=== PATIENT | female | born 1985 | race Caucasian/White ===

== ENCOUNTER 2022-06-26 13:10 | Emergency (ER) | payer OTHER, SELFPAY ==
--- NOTE | 2022-06-26 13:12 | ED.FEMALEGU ---
HPI - Female Genitourinary General Chief complaint: Urogenital-Female Stated complaint: poss UTI Time Seen by Provider: 06/26/22 13:12 Source: patient Mode of arrival: ambulatory Limitations: no limitations History of Present Illness HPI Narrative: Danielle is a 37-year-old female patient presenting to the clinic today with complaints of possible urinary tract infection. She reports she is having some vaginal discomfort and urinary frequency. Reports that this has been going on for two weeks. Has been drinking a lot a water. Was seen by her PCP and given medications for bacterial vaginosis however her symptoms did not improve so she treated herself with rehi-[id number] yeast medication and this did not help. Last menstrual period was last month. She states she should be starting any time. Related Data Home Medications Medication Instructions Recorded Confirmed cetirizine 10 mg tablet 10 mg PO DAILY 06/26/22 06/26/22 escitalopram oxalate 20 mg tablet 20 mg PO DAILY 06/26/22 06/26/22 Allergies Allergy/AdvReac Type Severity Reaction Status Date / Time No Known Allergies Allergy Unknown Verified 06/26/22 13:26 Review of Systems Review of Systems: Pertinent positives per HPI. Patient denies any fever, chills, rash, headache, visual changes, dizziness, cough, runny nose, sore throat, shortness of breath, chest pain, palpitations, nausea, vomiting, diarrhea,or constipation. PMFSH Comments At the time of my signature, I reviewed and agree with the nursing past medical, surgical, social, and family history. There is no relevant family history pertinent to the patient complaint. Exam Narrative: General: Well-developed, well nourished, in no apparent distress Head: Normocephalic, atraumatic. Cardio: Regular rate and rhythm, s1 and s2 normal, no murmur appreciated. Resp: Clear to auscultation bilaterally, no rhonchi, rales, wheezing or rubs. Abdomen: Soft, pliable, bowel sounds present in all quadrants, non-tender to palpation, no CVAT tenderness. : Pelvic exam performed with (Sarah SHAW) at bedside. Verbal consent obtained from patient. Normal external female genitalia without lesions or masses, Urinary meatus: patent without discharge, Vagina: No lesions, masses, white discharge in pelvic vault Cervix: pink without mass, lesions, discharge, or tenderness. Adnexa: without palpable mass or tenderness. Course Course Emergency Course: Portions of this record may have been created with voice recognition software. Level of Care: Express Care Visit Vital Signs Vital signs: Vital Signs Temperature 36.8 C 06/26/22 13:16 Pulse Rate 68 06/26/22 13:16 Respiratory Rate 18 06/26/22 13:16 Blood Pressure 123/72 06/26/22 13:16 Pulse Oximetry 100 06/26/22 13:16 Oxygen Delivery Room Air 06/26/22 13:16 Temperature 36.8 C 06/26/22 13:16 Pulse Rate 68 06/26/22 13:16 Respiratory Rate 18 06/26/22 13:16 Blood Pressure 123/72 06/26/22 13:16 Pulse Oximetry 100 06/26/22 13:16 Oxygen Delivery Room Air 06/26/22 13:16 Vital signs reviewed MDM - Female Genitourinary MDM Narrative Medical decision making narrative: At the time of visit patient is resting comfortably on the exam table. UA and urine preg test negative in the clinic today. .Vaginal exam was performed and testing for chlamydia, gonorrhea, Trichomonas, and BV were obtained. I will go ahead and treat the patient for potential yeast infection. She has already been treated for BV. I do not see any abnormal vaginal discharge currently. Will send and 3 day course of Monistat. Differential Diagnosis Differential diagnosis: Likely urinary tract infection, bacterial vaginosis, trichomoniasis, cervicitis, vaginitis and cystitis Lab Data Labs: UCG Bedside Result Negative Reference Range: Negative Urine Glucose Negative
[2022-06-26 13:16] VITALS: BP 123/72; PULSE 68; RESP 18; TEMP 36.8; O2SAT 100
== END 2022-06-26 14:00 | disposition home or self-care (01) ==
PROVIDERS: Emergency Provider Nurse Practitioner Family; PCP Family Medicine
DX: L29.2 Pruritus vulvae (principal); F32.9 Major depressive disorder, single episode, unspecified
CPT/HCPCS: 81003; 81025; 87070; 87491; 87591; 87661; 99204; G0463

== ENCOUNTER 2024-04-27 08:58 | Emergency (ER) | payer OTHER, SELFPAY ==
[2024-04-27 09:04] VITALS: BP 120/71; PULSE 67; RESP 20; TEMP 36.7; O2SAT 98
--- NOTE | 2024-04-27 09:15 | ED_ITS ---
HPI - URI/Sore Throat General Chief Complaint: Upper Respiratory Infection Stated Complaint: Cough Source: patient Mode of arrival: ambulatory Limitations: no limitations History of Present Illness HPI Narrative: 39-year-old female presented for complaint of cough for 4 days. States chest feels tight, cough is worse at night and has heard some wheezing. She denies associated shortness of breath, lethargy, nausea, vomiting, fevers. She reports an intermittent cough since December of this year, and has been prescribed a low- dose steroid and albuterol inhaler By PCP. She states the inhaler causes her to feel anxious jittery so she limits use. she says this cough is different. Related Data Home Medications Medication Instructions Recorded Confirmed cetirizine 10 mg tablet 10 mg PO DAILY 06/26/22 04/27/24 escitalopram oxalate 20 mg tablet 20 mg PO DAILY 06/26/22 04/27/24 pantoprazole 40 mg tablet,delayed 40 mg PO QAM 04/06/24 04/27/24 release clobetasol 0.05 % topical cream topical 04/27/24 vibegron 75 mg tablet (Gemtesa) 75 mg PO DAILY 04/27/24 04/27/24 Allergies Allergy/AdvReac Type Severity Reaction Status Date / Time No Known Allergies Allergy Unknown Verified 04/27/24 09:22 Review of Systems Review of Systems: CONSTITUTIONAL: Denies body aches, fever, chills, or sweats. EYES: Denies visual changes, redness, or discharge. ENT: Denies rhinorrhea, congestion, sore throat, or otalgia. CARDIOVASCULAR: Denies chest pain, palpitations, or edema. RESPIRATORY: Reports cough wheezing. GASTROINTESTINAL: Denies abdominal pain, nausea, vomiting, or diarrhea. MUSCULOSKELETAL: Denies back pain, joint pain, or myalgia. NEUROLOGIC: Denies headache All systems reviewed & are unremarkable except as noted in HPI and below PMFSH Past Medical History Medical History Anxiety GERD (gastroesophageal reflux disease) Family History Family History Mother Depression Sibling Depression Sibling Depression Grandparent Depression Cancer Alcoholism Grandparent Depression Cancer Alcoholism Social History Social History Smoking status: Former smoker Tobacco type: cigarettes Second hand tobacco smoke exposure: Yes Alcohol intake: never Substance use: never Substance use type: does not use Do You Feel Safe in your Home?: Yes Lack of Transportation: No Lack of Food: Never True Current Housing: I Have Housing Concerned About Future Housing: No Difficulty Paying Gas/Electric Bills: No Difficulty Paying for Meds: No Currently Unemployed: No Education: Master's Degree or Higher Difficulty w/ Childcare or Family Care: No Living arrangements: with family Gender identity (if verbalized by the patient): Female Spiritual care concerns: No Agree to blood products: Yes Comments At time of signature, I have reviewed and agree with nursing past medical, surgical, social and family history unless otherwise noted. Please see nursing chart for further information. There is no relevant family history pertinent to the presenting complaint Exam Narrative: GENERAL: Well-appearing, in no acute distress. EYES: EOMI. No redness or drainage. Conjunctivae normal. ENT: Mucous membranes pink and moist. No rhinorrhea. TMs normal bilaterally. Throat normal. Uvula midline. NECK: Normal AROM. Supple. CHEST: No respiratory distress. Lungs clear to all keenan. HEART: Regular rate and rhythm. No murmur appreciated. SKIN: Warm, dry, no rash. Capillary refill normal. Normal skin turgor. NEURO: Alert and oriented x3. Gait steady. PSYCH: Normal affect. Course Course Emergency Course: Patient is aware of diagnosis, understands and agrees to treatment plan. Anticipatory guidance given. Patient agrees to follow-up as directed and is aware of reasons to seek care at the emergency department. Portions of this record may have been created with voice recognition software Level of Care: Express Care Visit Vital Signs Vital signs: Vital Signs Temperature 98.1 F 04/27/24 09:04 Pulse Rate 67 04/27/24 09:04 Respiratory Rate 20 04/27/24 09:04 Blood Pressure 120/71 04/27/24 09:04 Pulse Oximetry 98 04/27/24 09:04 Oxygen Delivery Room Air 04/27/24 09:04 Temperature 98.1 F 04/27/24 09:04 Pulse Rate 67 04/27/24 09:04 Respiratory Rate 20 04/27/24 09:04 Blood Pressure 120/71 04/27/24 09:04 Pulse Oximetry 98 04/27/24 09:04 Oxygen Delivery Room Air 04/27/24 09:04 MDM - URI/Sore Throat MDM Narrative Medical decision making narrative: Discussed physical exam findings, reviewed prescriptions. Advised supportive measures and signs/symptoms to go to the ER. Pt is appropriate for outpt treatment and f/u. Differential Diagnosis Differential diagnosis: Likely upper respiratory infection, sinusitis, viral infection, bronchitis and other ( pneumonia) Discharge Plan Discharge Clinical Impression: Bronchitis Patient Disposition: Home, Self-Care Condition: Stable Instructions: Antibiotic Form, Acute Bronchitis (ED) Additional Instructions: Acute bronchitis can be contagious because it is usually caused by infection with a virus or bacteria. It is usually for a few days but you can be contagious for up to one week. Take medication as directed Continue the albuterol inhaler as previously prescribed over the counter Cough syrup may cause drowsiness; avoid driving or take it at night time. Tylenol 1000mg every 8 hours as needed for pain Recommend Flonase spray and Zyrtec (or Claritin/Rosa) If you developed nasal congestion and drainage Rest, push fluids, and increase humidity of the air at home. if no improvement with the above measures you can start the antibiotic Follow up with your primary care provider as needed in 1 week Go to the ER for worsening symptoms or concerns Prescriptions: New benzonatate 200 mg capsule 200 mg PO TID PRN (Reason: cough) Qty: 20 0RF codeine-guaifenesin [Guaifenesin AC] 10-100 mg/5 mL liquid 10 ml PO Q8H PRN (Reason: cough) Qty: 120 0RF prednisone 20 mg tablet 20 mg PO DAILY Qty: 12 0RF Rx Instructions: take 3 tablets daily for 2 days, then 2 tablets daily for 2 days then 1 tablet daily for 2 days amoxicillin-pot clavulanate 875-125 mg tablet 1 tablet PO Q12H 7 Days Qty: 14 0RF No Action clobetasol 0.05 % cream TOPICAL Gemtesa 75 mg tablet 75 mg PO DAILY cetirizine 10 mg tablet 10 mg PO DAILY escitalopram oxalate 20 mg tablet 20 mg PO DAILY pantoprazole 40 mg tablet,delayed release (DR/EC) 40 mg PO QAM albuterol sulfate 90 mcg/actuation HFA aerosol inhaler 1 inh inhalation Q4H PRN (Reason: shortness of breath or wheezing) Qty: 8.5 0RF Follow-up/Referrals: Guillermo Swanson MD [Primary Care Provider] - Time of Disposition: 09:29
== END 2024-04-27 09:30 | disposition home or self-care (01) ==
PROVIDERS: Emergency Provider Nurse Practitioner Family; PCP Family Medicine
DX: J40 Bronchitis, not specified as acute or chronic (principal); Z87.891 Personal history of nicotine dependence; K21.9 Gastro-esophageal reflux disease without esophagitis; F41.9 Anxiety disorder, unspecified
CPT/HCPCS: 99213; G0463

== ENCOUNTER 2024-05-22 14:33 | Outpatient (CLI) | payer OTHER, SELFPAY ==
--- NOTE | 2024-05-29 20:02 | WPDPFTINT ---
PFT Procedure Performed PFT Procedure Performed Plethysmography (Lung Vol) Diffusing Cap (DLCO) Flow Vol Loop Spirometry w/o Bronchodil PFT Interpretation DOS: 05/22/2024 REQUESTING: Guillermo Swanson MD REASON FOR TESTING: Dyspnea PULMONARY FUNCTION TESTS Results are reliable and reproducible. Repeatability of spirometry FEV1 maneuver pre-bronchodilator is Grade A. Spirometry: The pre-bronchodilator FEV1 is 3.57 L, 105%. The pre-bronchodilator FVC is 4.16 L, 99%. The FEV1/FVC ratio is 86%. Lung volumes: The total lung capacity is 5.70 L, 101%. The residual volume is 1.55 L, 85%. The RV/TLC is 27%. Airway resistance is normal. Diffusion: DLCO is 23.3, 92%. The DLCO/VA is 4.61, 101%. Flow volume loop: The flow volume loop is normal. IMPRESSION: This study shows normal spirometry, normal lung volumes and normal diffusion. No prior study to compare. Dayna Pedraza MD
== END 2024-05-22 14:34 | disposition home or self-care (01) ==
PROVIDERS: PCP Family Medicine; Visit Provider Family Medicine
DX: R06.00 Dyspnea, unspecified (principal)
CPT/HCPCS: 94375; 94726; 94729

== ENCOUNTER 2024-06-28 09:40 | Outpatient (CLI) | payer OTHER, SELFPAY ==
--- NOTE | ~2024-06-28 | XR_ITS ---
EXAMINATION: XR barium swallow modified DATE: 06/28/2024 13:23 INDICATION: Dysphagia. TECHNIQUE: The patient was given barium-containing material of multiple consistencies to swallow by t he speech pathologist while I performed fluoroscopy. Fluoroscopy exposure time was 0.8 minutes. The n umber of fluoroscopy images saved to the PACS was 1. Dose-area product was 0.746 Gy-cm^2. FINDINGS: The oral stage, pharyngeal stage, and cervical/esophageal stage of the swallow are normal. IMPRESSION: 1. Normal modified barium swallow. 2. Please refer to the speech therapy report for recommendations. Reviewed, dictated and finalized at location A. ID POWERTRAIN DEVELOPMENT ENGINEER
--- NOTE | 2024-06-28 10:50 | REHSTMBS ---
Assessment and note entered by Kasey Angulo, OIL DISTRIBUTOR Modified Barium Swallow Evaluation Diagnosis I choke ICD-10 Condition Codes (ST) Dysphagia, unspecified R13.1 Feeding Type Recommended Oral Food Consistency Regular, Level 7 Liquid Consistency Thin (0) ST Clinical Summary The above pleasant and cooperative pt was seen for an outpatient modified barium swallow. She was alert & oriented, and able to follow commands. She is currently on a regular diet and reports choking; she states it has been going on for a long time but is getting worse. She states she was put on omeprazole a month or 2 ago. She has no h/o pf pulmonary issues, i.e. pneumonia associated with this swallow issue. Oral mucosa is normal; natural dentition is in good condition; Informal oral peripheral exam revealed lingual and labial structures to be normal. She was able to dry swallow on command and exhibited a strong cough and clear vocal quality. The patient was positioned for a lateral view and presented with 5cc of thin liquid barium via spoon , pudding consistency barium via a spoon, cracker coated with barium pudding via spoon, and uncontrolled thin liquid barium. This was presented via a cup & straw. Oral preparatory and oral phase symptoms: none. Pharyngeal phase symptoms: none. Esophageal stage symptoms: none. No aspiration occurred. Impressions: Normal swallow Ability No further ST is warranted at this time.
== END 2024-06-28 09:41 | disposition home or self-care (01) ==
PROVIDERS: PCP Family Medicine; Visit Provider Nurse Practitioner Family
DX: R05.9 Cough, unspecified (principal); R13.10 Dysphagia, unspecified
CPT/HCPCS: 92611

== ENCOUNTER 2024-09-04 18:44 | Emergency (ER) | payer OTHER, SELFPAY ==
--- NOTE | ~2024-09-04 | XR_ITS ---
HISTORY: dropped heavy object today. pain 1st toe/metatarsal COMPARISON: None TECHNIQUE: 3 views of the left foot were performed FINDINGS: No acute fracture or dislocation is appreciated. No significant degenerative disease is noted. The base of the fifth metatarsal is intact. No calcaneal spur is noted. No significant soft tissue swelling is present. IMPRESSION: No acute fracture or dislocation Reviewed, dictated and finalized at location A.
[2024-09-04 18:52] VITALS: BP 147/93; PULSE 74; RESP 20; TEMP 36.8; O2SAT 97
--- OUTSIDE RECORDS SUMMARY | 2024-09-04 19:20 | XMS_ITS | Encounter Summary ---
Author Organization [facility] Address [address] [place] [address] Phone Care Team Providers Care Pleater Name Role Phone Martinez Ovalle MD Primary Care Provider [phone] Reason for Visit * Reason Comments Medication Refill Encounter Details Date Type Department Care Team (Late st Contact Info) Description 09/15/2023 Refill [facility] [address] [place] [address] Mars Yung MD [address] [address] Medication Refill Social History Tobacco Use Types Packs/Day Years Used Date Smoking Tobacco: Every Day Cigarettes 0.5 12 Smokeless Tobacco: Never Alcohol Use Standard Drinks/Week Comments No 0 (1 standard drink = 0.6 oz pur e alcohol) Sexually Active Control Partners Comments Yes Male Comments No Sex and Gender Information Value Date Recorded Sex Assigned at Not on file Legal Sex Female 11:40 PM CDT Gender Identity Not on file Sexual Orientation Not on file documented as of this encounter Miscellaneous Notes * Telephone Encounter - Paula Yost RN - 09/16/2023 8:22 AM CDT Per nursing clinical judgement, provider to review and approve the medication(s) order(s) if appropriate. Requested Prescriptions Pending Prescriptions Disp Refills Gemtesa 75 MG Tablet [Pharmacy Med Name: GEMTESA 75MG TABLETS] 90 Tablet Sig: TAKE 1 TABLET BY MOUTH DAILY Urinary Beta-3 Adrenergic Agonist Protocol Failed - 09/15/2023 9:44 AM Failed - Active on medication list Failed - Blood pressure on record in past 12 months Failed - Visit with relevant provider in past 12 months or upcoming 90 days Recent Visits No visits were found meeting these conditions. Showing recent visits within past 365 days and meeting all other requirements Future Appointments No visits were found meeting these conditions. Showing future appointments within next 90 days and meeting all other requirements Failed - GFR greater than or equal to 30 in past 12 months No results found for: GFRNA Passed - No conflicting beta blockers on med list documented in this encounter Plan of Treatment Not on file documented as of this encounter Visit Diagnoses Not on filedocumented in this encounter Care Teams Pleater Relationship Specialty Start Date End Date Martinez Ovalle MD [address] [place] [address] PCP - General Internal Medicine 07/11/15 documented as of this encounter
--- OUTSIDE RECORDS SUMMARY | 2024-09-04 19:20 | XMS_ITS | Patient Health Summary ---
Author Organization [facility] Address [address] [place] [address] Care Team Providers Care It Security Analyst Name Role Phone Unavailable Primary Care Provider Unavailabl e Note from [facility],non-owned Affiliates and Associated Physician Practices is amultiple site organization consisting of ambulatory clinics and hospital sitesin [place], [place], [place] and [place]. This disclosure is being madepursuant to the Care Everywhere program and may not contain all information available regarding this patient. Last updated 18.[facility] Social History Tobacco Use Types Packs/Day Years Used Date Smoking Tobacco: Never Assessed Sex and Gender Information Value Date Recorded Sex Assigned at Not on file Gender Identity Not on file Sexual Orientation Not on file Procedures * DERMATOPATHOLOGY(Performed 08/01/2020) Results * DERMATOPATHOLOGY (08/01/2020 12:00 AM [facility]) Case Report Dermatopathology Report Case: [id number] Authorizing Provider: Lexis Peterson MD Collected: 08/01/2020 12:00 AM Ordering Location: [facility] DermPath Lab Received: 08/02/2020 10:06 AM Pathologist: Frank Putnam MD Specimen: Skin, right knee 12:19 PM [facility] DERMATOPATHOLOGY LABORATORY Final Diagnosis Specimen A. SKIN, right knee: SPONGIOTIC DERMATITIS WITH EOSINOPHILS (L30.8) (see microscopic description and comment) 12:19 PM [facility] DERMATOPATHOLOGY LABORATORY Clinical History R/O PSO, AD, LSC 12:19 PM [facility] DERMATOPATHOLOGY LABORATORY Gross Description Specimen A: Received is one formalin filled container labeled with the patient's name and designated right knee. The specimen consists of a punch biopsy measuring 3x3x5 mm. Jar 0. 1 12:19 PM [facility] DERMATOPATHOLOGY LABORATORY Microscopic Description Specimen A. SKIN, right knee: There is focal parakeratosis and spongiosis. In the dermis there is a mainly superficial perivascular lymphohistiocytic inflammatory infiltrate with eosinophils. Grocott's methenamine silver (GMS) stain fails to highlight fungal elements in the available sections. COMMENT: The histological differential diagnosis includes a contact dermatitis and nummular eczrme. Additional deeper sections were obtained and reviewed. 12:19 PM [facility] DERMATOPATHOLOGY LABORATORY Disclaimer An external and internal positive and negative controls are appropriate for the histochemical, immunohistochemical and immunofluorescence stain(s) in this case (if any), except where stated explicitly. The performance characteristics of the stain(s) cited in this report were developed and its performance characteristic determined by the Dermatopathology Laboratory at [facility], directed by Dr. Efra Putnam. These tests need not be, and therefore are not, approved by the [place] Food and Drug Administration. The tests are used for clinical purposes. Billing Codes Specimen Charges Stain Charges 91642 1 81170 1 1 12:19 PM [facility] DERMATOPATHOLOGY LABORATORY Embedded Images 12:19 PM [facility] DERMATOPATHOLOGY LABORATORY Pathology/Cytolog y TISSUE SPECIMEN FROM SKIN / Unknown 08/01/2020 08/02/2020 10:06 AM FITTING ROOM MAINTENANCE MECHANIC Lexis Peterson MD LAB - PATHOLOGY/CYTO LOGY ORDERABLES DERMATOPATHOLOGY LABORATORY [facility] - Department of Dermatology [address] [phone]
--- OUTSIDE RECORDS SUMMARY | 2024-09-04 19:20 | XMS_ITS | Clinical Summary ---
Author Organization [facility] Address [address] [place] [address] Care Team Providers Care Curtain Feller Blindstitch Name Role Phone Martinez Ovalle MD Primary Care Provider [phone] Allergies No known active allergies Medications escitalopram 20 MG tablet Take 20 mg by mouth daily. Active cetirizine (ZYRTEC) 10 MG tablet Take 10 mg by mouth daily. 10/29/2021 Active fluticasone propionate (FLONASE) 50 MCG/ACT nasal sprayIndication s:Acute bacterial sinusitis 2 sprays by Each Nostril route daily. 16 g 1 01/06/2022 Active Active Problems Problem Noted Date Diagnosed Date Lymphocytic colitis 06/17/2016 Overview (01/09/2022): Colitis Eczema 06/07/2014 Overview (01/09/2022): Eczema Obsessive-compulsive disorder 06/07/2014 Overview (01/09/2022): OCD - Obsessive-compulsive disorder Anxiety 07/07/2013 Overview (01/09/2022): Anxiety Immunizations Name Administration Dates Next Due Influenza (Generic) 03/21/2019,02/19/2014 Influenza Adult (Generic) 04/26/2020,,03/04/2017,03/26/2016,2014 Tdap (Generic) 11/22/2017,03/17/2012 Social History Tobacco Use Types Packs/Day Years Used Date Smoking Tobacco: Former Smokeless Tobacco: Never Alcohol Use Standard Drinks/Week Comments No 0 (1 standard drink = 0.6 oz pur e alcohol) Comments No Sex and Gender Information Value Date Recorded Sex Assigned at Not on file Legal Sex Female 7:59 PM CDT Gender Identity Not on file Sexual Orientation Not on file Last Filed Vital Signs Vital Sign Reading Time Taken Comments Blood Pressure 111/75 10/23/2022 9:42 PM CDT Pulse 67 10/23/2022 9:42 PM CDT Temperature 36.4 C (97.5 F) 10/23/2022 9:42 PM CDT Respiratory Rate 16 10/23/2022 9:42 PM CDT Oxygen Saturation 98% 10/23/2022 9:42 PM CDT Inhaled Oxygen Concentration - - Weight 88.1 kg (194 lb 3.6 oz) 10/23/2022 9:42 P M CDT Height 170.2 cm (5' 7 ) 10/23/2022 9:42 PM CDT Body Mass Index 30.42 10/23/2022 9:42 PM CDT Plan of Treatment Health Maintenance Due Date Last Done Comments Cervical Cancer Screening Pap Smear (Age 30 to 64) Every 3 Years 1983 Annual Physical 1986 Hepatitis C 2001 Hepatitis B Vaccines (1 of 3 - 19+ 3-dose series) 2002 Cervical Cancer Screening Pap with HPV Testing (Age 30 to 64) Every 5 Years 2013 Cervical Cancer Screening with HPV 2013 Mammogram Screening 2023 COVID-19 Vaccine ( season) 2024 09/16/2020, 08/19/2020 Influenza Adult (#1) 2024 02/19/2022, 04/26/2020, 03/21/2019, Additional history exists DTaP, Tdap and Td Vaccines (3 - Td or Tdap) 11/23/2027 11/22/2017, 03/17/2012 HPV Vaccines Aged Out No longer eligi ble based on patient's age to complete this topic Meningococcal B Vaccine Aged Out No l onger eligible based on patient's age to complete this topic Meningococcal Vaccine Aged Out No john vinita eligible based on patient's age to complete this topic Pneumococcal Vaccine: Pediatrics (0 to 5 Years) and At-Risk Patients (6 to 64 Years) Aged Out No longer eligible based on patient's age to complete this topic RSV Immunizations Under 20 Months Aged Out No longer eligible based on patient's age to complete this topic Insurance [employer] Care Teams Curtain Feller Blindstitch Relationship Specialty Start Date End Date Martinez Ovalle MD [address] [place] [address] PCP - General INTERNAL MEDICINE 12/07/17
--- OUTSIDE RECORDS SUMMARY | 2024-09-04 19:20 | XMS_ITS | Continuity of Care Document ---
Author Name [facility] Organization [facility] Care Team Providers Care Film Rental Clerk Name Role Phone [facility] Unavailable Unavailable Problems Combined list of problems from Department of Defense and Veterans Affairs facilities. It does not include entries that were removed or entered in error. Problem Status Onset Date Problem Type Date of Resolution Comments Source Encounter for AUDIOGRAM Active 03/16/2024 Diagnosis [id number]-M-[id number] nd [facility] EXAM, FORMAL 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 HEALTH PROGRAM INCLUDING HEARING CONSERVATION PROGRAM, ESTABLISH BASELINE PRIOR TO 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 WORKPLACE EXPOSURE Active 03/16/2024 Diagnosis 0004C- AF-C-42 nd [facility] [facility] Ear examination normal Active 03/16/2024 Diagnosis 0233R-CR-K-42 nd [facility] [facility] Cough Active 03/16/2024 Diagnosis 0004R [facility]CES AF-C-[facility]nd [facility] Allergic rhinitis Active 03/10/2024 Diagnosis 0 004R [facility]CES AF-C-[facility]nd [facility] [facility] Cough Active 03/10/2024 Diagnosis 0004R [facility]CES AF-C-[facility]nd [facility] [facility] Immunizations Combined list of available immunizations from the Department of Defense and Veterans Affairs facilities. Immunization Series Date Given Administered By Site Reaction Lot Number CVX Code Drug Dining Chair Seat Cushion Trimmer Status Comments Source influenza, injectable, quadrivalent 2020 [id number] GlaxoSmithKli ne complet ed influenza , injectabl e, quadrival ent 05/24/21 Given Ambulat ory Pharmac y COVID Vaccine Moderna 2020 TRS 207 complet ed COVID Vaccine Moderna 09/15/20 Given Ambulat ory Pharmac y COVID Vaccine Moderna 2020 TRS 207 complet ed COVID Vaccine Moderna 08/19/20 Given Ambulat ory Pharmac y influenza, injectable, quadrivalent- pf 2019 TRANSCR IBED 150 complet ed influenza , injectabl e, quadrival ent-pf 04/26/20 Given Ambulat ory Pharmac y influenza, injectable, quadrivalent 2018 [id number] 158 Seqirus complet ed influenza , injectabl e, quadrival ent 03/25/19 Given Ambulat ory Pharmac y influenza, injectable, quadrivalent- pf 2017 [id number] 150 Seqirus complet ed influenza , injectabl e, quadrival ent-pf 04/24/18 Given Ambulat ory Pharmac y influenza, seasonal, injectable 2016 TRANSCR IBED 141 sanofi pasteur complet ed influenza , seasonal, injectabl e 03/13/17 Given Ambulat ory Pharmac y influenza virus vaccine, unspecified 2015 TRANSCR IBED 88 complet ed influenza virus vaccine, unspecifi ed 03/17/16 Given Ambulat ory Pharmac y influenza, seasonal, injectable-pf 2014 [id number] 140 CSL Behring complet ed influenza , seasonal, injectabl e-pf 03/23/15 Given Ambulat ory Pharmac y influenza, seasonal, injectable 2013 [id number] 141 Novartis Pharmaceutica ls complet ed influenza , seasonal, injectabl e 03/24/14 Given Ambulat ory Pharmac y influenza, live, intranasal,qu adrivalent 2012 [id number] [employer] comple t ed influenza , live, intranasa l,quadriv alent 04/22/13 Given Ambulat ory Pharmac y influenza, seasonal, injectable-pf 2011 [id number] 140 sanofi pasteur complet ed influenza , seasonal, injectabl e-pf 05/21/12 Given Ambulat ory Pharmac y DTaP 2011 20 sanofi pasteur complet ed DTaP 03/17/12 Given Ambulat ory Pharmac y tetanus, diphtheria, acellular pertu is 2011 TRANSCR IBED 115 complet ed tetanus, diphtheri a, acellular pertussis 01/03/12 Given Ambulat ory Pharmac y influenza, seasonal, injectable 2010 [id number] 141 CSL Behring complet ed influenza , seasonal, injectabl e 03/21/11 Given Ambulat ory Pharmac y influenza virus vaccine,split 2009 [id number] 15 CSL Behring complet ed influenza virus vaccine,s plit 04/26/10 Given Ambulat ory Pharmac y Novel influenza-H1N 1-, injectable 2009 [id number] 127 Novartis Pharmaceutica complet ed Novel influenza -R4G2-57, injectabl e 07/27/09 Given Ambulat ory Pharmac y influenza virus vaccine,split 2008 [id number] 15 sanofi pasteur complet ed influenza virus vaccine,s plit 04/27/09 Given Ambulat ory Pharmac y influenza virus vaccine, live 2007 [id number] 111 [employer] [facility] comple t ed influenza virus vaccine, live 06/27/07 Given Ambulat ory Pharmac y influenza virus vaccine,split 2005 [id number] 15 sanofi pasteur complet ed influenza virus vaccine,s plit 05/29/06 Given Ambulat ory Pharmac y tuberculin purified protein derivative 2005 [id number] 96 [facility] complet ed tuberculi n purified protein derivativ e 12/30/05 Given Ambulat ory Pharmac y influenza virus vaccine, whole virus 2004 16 complet ed influenza virus vaccine, whole virus 04/02/05 Given Ambulat ory Pharmac y anthrax vaccine 2004 [id number] [employer] complet ed anthrax vaccine 02/03/05 Given Ambulat ory Pharmac y typhoid vaccine, live, oral 2004 [id number] 25 [employer] [place] complet ed typhoid vaccine, live, oral 02/03/05 Given Ambulat ory Pharmac y vaccinia (smallpox) vaccine, diluted 2004 [id number] 105 Zin.gl complet ed vaccinia (smallpox ) vaccine, diluted 02/03/05 Given Ambulat ory Pharmac y influenza virus vaccine,split 2004 [id number] 15 sanofi pasteur complet ed influenza virus vaccine,s plit 08/20/04 Given Ambulat ory Pharmac y hepatitis A-hepatitis B vaccine 2004 [id number] 104 GlaxoSmithKli ne complet ed hepatitis A-hepatit is B vaccine 07/29/04 Given Ambulat ory Pharmac y influenza virus vaccine,split 2004 [id number] 15 sanofi pasteur complet ed influenza virus vaccine,s plit 07/29/04 Given Ambulat ory Pharmac y hepatitis A-hepatitis B vaccine 2003 [id number] 104 GlaxoSmithKli ne complet ed hepatitis A-hepatit is B vaccine 12/08/03 Given Ambulat ory Pharmac y hepatitis A-hepatitis B vaccine 2003 [id number] 104 [employer] ne complet ed hepatitis A-hepatit is B vaccine 11/07/03 Given Ambulat ory Pharmac y tetanus-dipht h toxoids (Td) adult/adol 2003 [id number] 09 sanofi pasteur complet ed tetanus-d iphth toxoids (Td) adult/ado l 11/02/03 Given Ambulat ory Pharmac y tuberculin purified protein derivative 2003 [id number] 96 sanofi pasteur complet ed tuberculi n purified protein derivativ e 11/02/03 Given Ambulat ory Pharmac y influenza virus vaccine, whole virus 2003 [id number] 16 Novartis u.sittica ls complet ed influenza virus vaccine, whole virus 11/02/03 Given Ambulat ory Pharmac y poliovirus vaccine, inactivated 2003 [id number] 10 sanofi pasteur complet ed polioviru s vaccine, inactivat ed 11/02/03 Given Ambulat ory Pharmac y meningococcal polysaccharid e (MPSV4) 2003 [id number] 32 sanofi pasteur complet ed meningoco ccal polysacch aride (MPSV4) 11/02/03 Given Ambulat ory Pharmac y Results Combined list of recent chemistry, hematology and other laboratory results from Department of Defense and Veterans Affairs, ranging from 15 months to all on record, depending upon the facility. Order Name Results Value Reference Range Date Interpretation Specimen Comments Source Chemistry Beta hCG Qnt <1 m[iU]/mL 0 - 6 02/15 N Interpretive Data: NEGATIVE - 0-6 MIU/ML GESTATION: 3-4 WEEKS - 9-130 MIU/ML 4-5 WEEKS - 75-2600 MIU/ML 5-6 WEEKS - 850-20,800 MIU/ML 6-7 WEEKS - 4,000-100,20 0MIU/ML 7-12 WEEKS - 11,500-289,0 00 MIU/ML 12-16 WEEKS - 18,300-137,0 00MIU/ML 16-29 WEEKS - 1,400-53,000 MIU/ML 29-41 WEEKS - 940-60,000 MIU/ML REFERENCED TO 3rd WHO INTERNATIONA L STD. 0004A-A F-C-42n d [facility] [place] Infectiou s Disease Rubella IgG Antibody Positive 4 (02/16/24 7:00 AM) 02/15 N Interpretive Data: NEGATIVE: Sample is considered negative for IgG antibodies to rubella virus. A negative result presumes that immunity has not been acquired. If exposure to rubella virus is suspected despite a negative finding, a second specimen should be collected and tested one or two weeks later. Seroconversi on from a negative specimen to a positive specimen is evidence of either recent infection, response to vaccination, or administrati on of immunoglobul ins. EQUIVOCAL: Please obtain additional specimen for re-testing. POSITIVE: Sample is considered positive for IgG antibodies to rubella virus. The results of this assay are not by themselves diagnostic. Diagnosis of infectious diseases should not be established on the basis of a single test result, but should be determined in conjunction with clinical findings and other diagnostic procedures as well as in association with medical judgment. The presence of IgM antibody to rubella virus should also be evaluated as part of the serological surveillance of individuals suspected of rubella virus infection, as the appearance of rubella IgG antibody may occur slightly later than that of rubella IgM antibody. Diagnosis of infectious diseases should not be established on the basis of a single test result, but should be determined in conjunction with clinical findings and other diagnostic procedures as well as in association with medical judgment. Human anti-mouse antibodies (HAMA) and other heterophile antibodies may be present in patient samples. Although patient specimens are washed away prior to the addition of the mouse monoclonal (conjugate), the performance characterist ics of HAMA specimens have not been established and may occasionally influence results. Carefully evaluate results from patients suspected of having such antibodies. Cross-reacti vity could not be determined for HBsAg, measles IgG, mumps IgG, anti-HCV, anti-HIV-1/2 , parvovirus IgG, gammaglobuli n, rheumatoid factor and Treponema pallidum due to low prevalence of rubella antibody negative/crowning hammer operator ss-reacting condition positive patients. The performance characterist ics of this assay have not been evaluated for use in pediatric populations. Methodology: Chemilumines cent immunoassay (CLIA) 5600A-U [facility] EPILAB Infectiou s Disease Rubeola IgG Antibody Positive 2 (02/16/24 7:00 AM) 02/15 N Interpretive Data: NEGATIVE: Absence of detectable measles virus IgG antibodies. A negative result generally indicates that the patient has not been infected and is susceptible to measles. If the subject has no history of measles, has not been previously vaccinated and exposure to measles virus is suspected despite a negative finding, a second sample should be collected and tested within one to two weeks later. EQUIVOCAL: Submit a second sample no less than one or two weeks later. POSITIVE: Presence of detectable measles virus IgG antibodies. A positive result generally indicates exposure to measles virus or previous vaccination. False negative results may occur if samples are collected early in the disease. Diagnosis of a disease should be established based on the patient's anamnesis, in conjunction with clinical findings and in association with medical judgment. Any therapeutic decision must also be taken on a brhb-ah-syzx basis. Specimens from patients receiving preparations of mouse monoclonal antibodies for therapy or diagnosis may contain human anti-mouse antibodies (HAMA). Such specimens may interfere in a monoclonal antibody-bas ed immunoassay and their results should be evaluated with care. Grossly hemolyzed, icteric or lipemic samples as well as samples containing particulate matter or exhibiting obvious microbial contaminatio n are not recommended and should not be tested. Diagnosis of infectious diseases should not be established on the basis of a single test result, but should be determined in conjunction with previous infection history, clinical findings and other diagnostic procedures as well as in association with medical judgment. The performance characterist ics of this assay have not been evaluated for use in pediatric populations. Methodology: Chemilumines cent immunoassay (CLIA) [facility] Infecti[facility] s Disease Mumps IgG Antibody Negative 3 (02/16/24 7:00 AM) 02/15 N Interpretive Data: NEGATIVE: Absence of detectable mumps virus IgG antibodies. A negative result generally indicates that the patient has not been infected and is susceptible to mumps. If the subject has no history of mumps, has not been previously vaccinated and exposure to mumps virus is suspected despite a negative finding, a second sample should be collected and tested no less than one to two weeks later. EQUIVOCAL: Submit a second sample no less than one or two weeks later. POSITIVE: Presence of detectable mumps virus IgG antibodies. A positive result generally indicates past exposure to mumps virus or previous vaccination. Diagnosis of a disease should be established based on the patient's anamnesis, in conjunction with clinical findings and in association with medical judgment. Any therapeutic decision must also be taken on a zqpl-fh-yaiu basis. Specimens from patients receiving preparations of mouse monoclonal antibodies for therapy or diagnosis may contain human anti-mouse antibodies (HAMA). Such specimens may interfere in a monoclonal antibody-bas ed immunoassay and their results should be evaluated with care. Grossly hemolyzed, icteric or lipemic samples as well as samples containing particulate matter or exhibiting obvious microbial contaminatio n are not recommended and should not be tested. Diagnosis of infectious diseases should not be established on the basis of a single test result, but should be determined in conjunction with previous infection history, clinical findings and other diagnostic procedures as well as in association with medical judgment. The performance characterist ics of this assay have not been evaluated for use in pediatric populations. Methodology: Chemilumines cent immunoassay (CLIA) 5600A-U [employer] Vital Signs Combined list of inpatient and outpatient Vital Signs from Department of Defense and Veterans Affairs, ranging from 12 months to all on record, depending upon the facility. Vital Sign Value Date Comments Source Temperature Oral 36.2 Jada 03/16/2024 11:20:00 0004R [employer] AF-C-42nd [facility] Respiratory Rate 14 br/min 03/16/2024 11:20:00 0004R [employer] AF-C-42nd [facility] Peripheral Pulse Rate 83 bpm 03/16/2024 11:20:00 0004R [facility] AF-C-42nd [facility] Blood Pressure Manual Automatic 03/16/2024 11:20:00 0004R [employer] AF-C-42nd [facility] Mean Arterial Pressure, Calc 93 mm[Hg] 03/16/2024 11:20:00 0004R [facility]nd [facility] BP Site Left arm 03/16/2024 11:20:00 0004R [employer] AF-C-42nd [facility] Systolic Blood Pressure 122 mm[Hg] 03/16/20 24 11:20:00 0004R [employer] AF-C-42nd [facility] Diastolic Blood Pressure 79 mm[Hg] 024 11:20:00 0004R [employer] AF-C-42nd [facility] Respiratory Rate 18 br/min 03/10/2024 16:47:00 0004R [employer] AF-C-42nd [facility] Systolic Blood Pressure 133 mm[Hg] 03/10/20 24 16:47:00 0004R [employer] AF-C-42nd [facility] Diastolic Blood Pressure 88 mm[Hg] 024 16:47:00 0004R [employer] AF-C-42nd [facility] Mean Arterial Pressure, Calc 103 mm[Hg] 03/10/2024 16:47:00 0004R [employer]CES AF-C-42nd [facility] Temperature Oral 36.9 Jada 03/10/2024 16:47:00 0004R [employer] AF-C-42nd [facility] Peripheral Pulse Rate 58 bpm 03/10/2024 16:47:00 0004R [employer] AF-C-42nd [facility] Encounters Combined list of: 1) Encounters from Department of Veterans Affairs facilities going backup to the last 18 months, not all VA inpatient encounters are included; 2) Encounters from the Department of [employer] facilities going backup to 280 months. Location Location Details Encounter Type Encounter Number Reason For Visit Attending Provider ADM Date DC Date Status Disposition Source 3A-AF- C-42nd [facility] [id number] DANELLE EVA Mccabe 02/15 Discharge Disposition: Home or Self Care 0004A-A F-C-42n d [facility] 0004R [facility] AF-C-[facility]nd [facility] [id number] Allergi c rhiniti s, unspeci fied,Co ugh, unspeci fied BANG HENRY 03/10 Discharge Disposition: Home or Self Care 0004R OPFORCE S AF-C-42 nd [facility] [place] 0004R [facility] AF-C-[facility]nd [facility] [id number] Cough, unspeci fied ROMULO YUAN 03/16 Discharge Disposition: Home or Self Care 0004R OPFORCE S AF-C-42 nd [facility] 0004C-AF- C-[facility]nd [facility] [id number] Encount er for other specifi ed special examina tions,E XAM, FORMAL OCCUPAT IONAL HEALTH PROGRAM INCLUDI HEARING CONSERV ATION PROGRAM , LAMAR FERRERA E PRIOR TO OCCUPAT 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 Procedure Procedure Type Code Date Perfomer Comments Sourc e No data available for this section Ambulatory P harmacy Social History Combined list of available smoking, tobacco, and other social history from Department of Defense and Veterans Affairs facilities. Social History Type Response Date Comment Sourc e Sex Representation Female 09/26/2021 Unknow n Organization Sexual Orientation Ambula tory Pharmacy Gender identity Ambulator y Pharmacy Assessment and Plan Combined list of future care activities from Department of [facility] and Veterans Affairs facilities (e.g., assessment and plan notes, appointments, orders, and referrals). Additional future care activities may be listed in the Plan of Care section. Result Assessment and Plan Date Source Assessment and Plan Extracted from:Title : PHAQ REV Author: NÉSTOR GÓMEZ Date: 08/30/24 PHAQ Reviewed. Extracted from:Title: Office Clinic Note Author: JUVENAL PRASAD Date: 03/16/24 Ear examination normal Encounter for AUDIOGRAM EXAM, FORMAL 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 HEALTH PROGRAM INCLUDING HEARING CONSERVATION PROGRAM, ESTABLISH BASELINE PRIOR TO 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 WORKPLACE EXPOSURE Extracted from:Title: Office Clinic Note/Acute bronchitis Author: ALEJANDRO TOMAS IDMT Date: 03/16/24 1. C ough 39yo F with persistent cough [id number] progressing to acute bronchitis based on symptoms and exam today. Pneumonia less likely due to lack of fever, v/s WNL, lack of dyspnea, and lungs CTAB. Patient has taken Robafen with little effect. Currently takes Rosa daily. -Medrol dose pack x6days -f/u for new or worsening sx including f/c and d yspnea -Patient verbalized understanding and agrees with care plan. -Plan discussed with and approved by Shola Butt [phone] Ordered: methylPREDNISolone(methylPREDN ISolone Dose Pack 4 mg oral tablet), See Instructions, Take as directed on package labeling for 6 days, # 21 tab(s), 0 total refill(s), Acute, Other Reason (Rx) [External Rx] SSgt Alejandro Tomas, IDELIDIA MAS, 22d TRSS, OTS, [place], [place] Extracted from:Title: Office Clinic Note Author: BANG TANG, MICHELA Date: 03/10/24 1. A llergic rhinitis Patient placed on 24 hour quarters Advised to go to UC or ER if symptoms worsen over the weekend F/U in clinic on Wednesday for F/U if needed PVUA Ordered: benzocaine-menthol topical(Cepacol Sore Throat Sugar Free 15 mg-3.6 mg mucous membrane lozenge), 1 lozenge(s), Oral, every 2 hr, # 18 EA, 0 total refill(s), Acute, 03/14/2024, OTS Stock, Other Reason (Rx) [External Rx] fluticasone nasal(Flonase Allergy Relief 50 mcg/inh nasal spray), 50 mcg, Nostril-Both, Daily, # 15.8 mL, 0 total refill(s), Maintenance, OTS Stock, Other Reason (Rx) [External Rx] pseudoephedrine-guaifenesin(Mu cinex D 60 mg-600 mg oral tablet, extended release), 1 tab(s), Oral, BID, PRN cold symptoms, # 18 tab(s), 0 total refill(s), Acute, OTS Stock, Other Reason (Rx) [External Rx] 2. C ough Ordered: benzocaine-menthol topical(Cepacol Sore Throat Sugar Free 15 mg-3.6 mg mucous membrane lozenge), 1 lozenge(s), Oral, every 2 hr, # 18 EA, 0 total refill(s), Acute, 03/14/2024, OTS Stock, Other Reason (Rx) [External Rx] fluticasone nasal(Flonase Allergy Relief 50 mcg/inh nasal spray), 50 mcg, Nostril-Both, Daily, # 15.8 mL, 0 total refill(s), Maintenance, OTS Stock, Other Reason (Rx) [External Rx] pseudoephedrine-guaifenesin(Mu cinex D 60 mg-600 mg oral tablet, extended release), 1 tab(s), Oral, BID, PRN cold symptoms, # 18 tab(s), 0 total refill(s), Acute, OTS Stock, Other Reason (Rx) [External Rx] 09/05/2024 [id number] and Plan Extracted from:Title : PHAQ REV Author: NÉSTOR GÓMEZ Date: 08/30/24 PHAQ Reviewed. Extracted from:Title: Office Clinic Note Author: JUVENAL PRSAAD Date: 03/16/24 Ear examination normal Encounter for AUDIOGRAM EXAM, FORMAL 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 HEALTH PROGRAM INCLUDING HEARING CONSERVATION PROGRAM, ESTABLISH BASELINE PRIOR TO 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 WORKPLACE EXPOSURE Extracted from:Title: Office Clinic Note/Acute bronchitis Author: ALEJANDRO TOMAS IDMT Date: 03/16/24 1. C ough 39yo F with persistent cough [id number] progressing to acute bronchitis based on symptoms and exam today. Pneumonia less likely due to lack of fever, v/s WNL, lack of dyspnea, and lungs CTAB. Patient has taken Robafen with little effect. Currently takes Rosa daily. -Medrol dose pack x6days -f/u for new or worsening sx including f/c and d yspnea -Patient verbalized understanding and agrees with care plan. -Plan discussed with and approved by Shola Butt [phone] Ordered: methylPREDNISolone(methylPREDN ISolone Dose Pack 4 mg oral tablet), See Instructions, Take as directed on package labeling for 6 days, # 21 tab(s), 0 total refill(s), Acute, Other Reason (Rx) [External Rx] SSgt MICHELA Devine MAS, 22d TRSS, [place] [employer] Extracted from:Title: Office Clinic Note Author: BANG TANG IDMT Date: 03/10/24 1. A llergic rhinitis Patient placed on 24 hour quarters Advised to go to UC or ER if symptoms worsen over the weekend F/U in clinic on Wednesday for F/U if needed PVUA Ordered: benzocaine-menthol topical(Cepacol Sore Throat Sugar Free 15 mg-3.6 mg mucous membrane lozenge), 1 lozenge(s), Oral, every 2 hr, # 18 EA, 0 total refill(s), Acute, 03/14/2024, OTS Stock, Other Reason (Rx) [External Rx] fluticasone nasal(Flonase Allergy Relief 50 mcg/inh nasal spray), 50 mcg, Nostril-Both, Daily, # 15.8 mL, 0 total refill(s), Maintenance, OTS Stock, Other Reason (Rx) [External Rx] pseudoephedrine-guaifenesin(Mu cinex D 60 mg-600 mg oral tablet, extended release), 1 tab(s), Oral, BID, PRN cold symptoms, # 18 tab(s), 0 total refill(s), Acute, OTS Stock, Other Reason (Rx) [External Rx] 2. C ough Ordered: benzocaine-menthol topical(Cepacol Sore Throat Sugar Free 15 mg-3.6 mg mucous membrane lozenge), 1 lozenge(s), Oral, every 2 hr, # 18 EA, 0 total refill(s), Acute, 03/14/2024, OTS Stock, Other Reason (Rx) [External Rx] fluticasone nasal(Flonase Allergy Relief 50 mcg/inh nasal spray), 50 mcg, Nostril-Both, Daily, # 15.8 mL, 0 total refill(s), Maintenance, OTS Stock, Other Reason (Rx) [External Rx] pseudoephedrine-guaifenesin(Mu cinex D 60 mg-600 mg oral tablet, extended release), 1 tab(s), Oral, BID, PRN cold symptoms, # 18 tab(s), 0 total refill(s), Acute, OTS Stock, Other Reason (Rx) [External Rx] 09/05/2024 0004R [employer] AF-C-42nd [facility] Functional Status Combined list of recent functional and cognitive assessments recorded at Department of Defense and Veterans Affairs (VA).VA Functional Imperial Measurement (FIM) Scale: 1 = Total Assistance (Subject = 0% +), 2 = Maximal Assistance (Subject = 25% +), 3 = Moderate Assistance (Subject = 50% +), 4 = Minimal Assistance (Subject = 75% +), 5 = Supervision, 6 = Modified Imperial (Device), 7 = Complete Imperial (Timely, Safely). Assessment Date/Time Source Assessment Type Assessment Skill Assessment Score Assessment Details No data available for this section
--- OUTSIDE RECORDS SUMMARY | 2024-09-04 19:20 | XMS_ITS | Referral Summary ---
Author Organization [facility] Address [address] [place] [address] Care Team Providers Care Stope Miner Name Role Phone Unavailable Primary Care Provider Unavailabl e Source Comments [facility],non-owned Affiliates and Associated Physician Practices is amultiple site organization consisting of ambulatory clinics and hospital sitesin [place], [place], [place] and [place]. This disclosure is being madepursuant to the Care Everywhere program and may not contain all information available regarding this patient. Last updated 18.[facility] Social History Tobacco Use Types Packs/Day Years Used Date Smoking Tobacco: Never Assessed Sex and Gender Information Value Date Recorded Sex Assigned at Not on file Gender Identity Not on file Sexual Orientation Not on file Plan of Treatment Not on file
--- OUTSIDE RECORDS SUMMARY | 2024-09-04 19:20 | XMS_ITS | Encounter Summary ---
Author Organization [facility] Address [address] [place] [address] Care Team Providers Care Volleyball Assistant Coach Name Role Phone Unavailable Primary Care Provider Unavailabl e Encounter Details Date Type Department Care Team (Late st Contact Info) Description 08/02/2020 Lab Requisition [facility] [address] [place] [id number] Lexis Peterson MD [address] [place] [address] Social History Tobacco Use Types Packs/Day Years Used Date Smoking Tobacco: Never Assessed Sex and Gender Information Value Date Recorded Sex Assigned at Not on file Gender Identity Not on file Sexual Orientation Not on file documented as of this encounter Plan of Treatment Not on file documented as of this encounter Procedures Procedure Name Priority Date/Time Associated Diagnosis Comments DERMATOPATHOLOGY Routine 08/01/2020 12:0 0 AM SUPERVISING BROKER documented in this encounter Results * DERMATOPATHOLOGY (08/01/2020 12:00 AM SUPERVISING BROKER) Case Report Dermatopathology Report Case: [id number] Authorizing Provider: Lexis Peterson MD Collected: 08/01/2020 12:00 AM Ordering Location: [facility] Received: 08/02/2020 10:06 AM Pathologist: Frank Putnam MD Specimen: Skin, right knee 12:19 PM [facility] DERMATOPATHOLOGY LABORAT[facility] Final Diagnosis Specimen A. SKIN, right knee: SPONGIOTIC DERMATITIS WITH EOSINOPHILS (L30.8) (see microscopic description and comment) 12:19 PM [facility] DERMATOPATHOLOGY LABORATORY Clinical History R/O PSO, AD, LSC 12:19 PM [facility] DERMAT[facility]Y [facility]ORATORY Gross Description Specimen A: Received is one formalin filled container labeled with the patient's name and designated right knee. The specimen consists of a punch biopsy measuring 3x3x5 mm. Jar 0. 12:19 PM [facility] DERMAT[facility]ATHOLOGY [facility]ORY Microscopic Description Specimen A. SKIN, [...] sections were obtained and reviewed. 12:19 PM [facility]ERMAT[facility] Disclaimer An external and internal positive and negative controls are appropriate for the histochemical, immunohistochemical and immunofluorescence stain(s) in this case (if any), except where stated explicitly. The performance characteristics of the stain(s) cited in this report were developed and its performance characteristic determined by the Dermatopathology Laboratory at [facility], directed by Dr. Efra Putnam. These tests need not be, and therefore are not, approved by the [place] Food and Drug Administration. The tests are used for clinical purposes. Billing Codes Specimen Charges Stain Charges 68537 1 11887 1 12:19 PM [facility] DERMAT[facility] Embedded Images 12:19 PM [facility] Pathology/Cytolog y TISSUE SPECIMEN FROM SKIN / Unknown 08/01/2020 08/02/2020 10:06 AM SUPERVISING BROKER Lexis Peterson MD LAB - PATHOLOGY/CYTO LOGY ORDERABLES DERMATOPATHOLOGY LABORATORY [facility] - Department of Dermatology [address], [address] [phone] documented in this encounter Visit Diagnoses Not on filedocumented in this encounter
--- OUTSIDE RECORDS SUMMARY | 2024-09-04 19:20 | XMS_ITS | Clinical Summary ---
Author Organization [facility] Address [address] [place] [address] Care Team Providers Care Rn Unit Manager Name Role Phone Martinez Ovalle MD Primary Care Provider [phone] Allergies No known active allergies Medications ALPRAZolam (XANAX) 0.5 mg tablet Take 1 tablet (0.5 mg total) by mouth 3 (three) times a day as needed for anxiety 20 tablet 2 2 Active Additional Information Patient not taking.Reported on 04/01/2022 vibegron (Gemtesa) 75 mg tablet Take 75 mg by mouth daily Active escitalopram (LEXAPRO) 20 mg tablet TAKE 1 TABLET(20 MG) BY MOUTH DAILY 90 tablet 3 4 Active phentermine 15 mg capsule TAKE 1 CAPSULE(15 MG) BY MOUTH EVERY MORNING 30 capsule 4 Active Additional Information Patient not taking.Reported on 01/05/2024 buPROPion XL (WELLBUTRIN XL) 150 mg 24 hr tablet Take 1 tablet (150 mg total) by mouth daily Active pantoprazole DR (PROTONIX) 40 mg EC tablet Take 1 tablet (40 mg total) by mouth daily 90 tablet 1 4 01/05/20 25 Active cetirizine (ZyrTEC) 10 mg tablet TAKE 1 TABLET BY MOUTH EVERY DAY 30 tablet 10 4 Active Active Problems Problem Noted Date Diagnosed Date Mood disorder 08/11/2023 Well woman exam 04/23/2023 Overview (04/23/2023): Lab: Pap:remote h/o abln Labs with DR. Ovalle Kierra:s/p bx to return in a year Colonoscopy:x 2 next 2026 BMD: Gardasil:did not get. Assessment & Plan (04/23/2023 3:03 PM CDT): Pap done. RTO 12m. I will send the results to the portal. If she has not heard in a week, to call the office. Dysuria 04/23/2023 Assessment & Plan (04/23/2023 3:14 PM CDT): S/p Gu She will watch diet Gluten-sensitive enteropathy 03/23/2022 Assessment & Plan (03/23/2022 2:54 PM CDT): See nitritionist and gluten free diet Irritable bowel syndrome wit h both constipation and diarrhea 02/03/2022 Assessment & Plan (02/03/2022 1:57 PM CDT): Colonoscop;y Return after Hemorrhoids 02/03/2022 Overview (02/03/2022): Added automatically from request for surgery [id number] Skin cyst 03/25/2021 Assessment & Plan (03/25/2021 4:16 PM CDT): No active drainage. To discuss with derm as she has an appt scheduled with them. We discussed trying a deodorant only. Dizziness 05/08/2019 Assessment & Plan (05/08/2019 4:01 PM MARBLE MACHINE OPERATOR): Instructed to increase daily water intake. She has been using a ketogenic diet, has been advised to eat a more structured meal plan that includes daily dietary fiber hydration and a healthy balance of protein and fats. Acute pain of left knee 05/08/2019 Assessment & Plan (05/08/2019 4:02 PM MARBLE MACHINE OPERATOR): She does not wish to have imaging at this time. Will order physical therapy. Advised to use [id number] NSAIDs use as directed on the package. Use warm packs and cold packs to affected knee. Try using a low-impact exercise program. Vitamin D deficiency 06/28/2017 Lymphocytic colitis 06/17/2016 Overview (04/25/2019): Colitis Assessment & Plan (02/03/2022 1:56 PM CDT): colonoscopy Vaginal dryness 08/01/2014 Overview (09/25/2016): Vaginal dryness Eczema 06/07/2014 Overview (09/25/2016): Eczema Obsessive-compulsive disorder 06/07/2014 Overview (09/25/2016): OCD - Obsessive-compulsive disorder Anxiety 07/07/2013 Overview (09/25/2016): Anxiety Resolved Problems Problem Noted Date Diagnosed Date Resolved Date Well woman exam with routine gynecological exam 03/25/2021 12/11/2022 Overview (04/01/2022): Lab: Pap:remote h/o abnl Labs with pcp Kierra: Colonoscopy:2031 BMD: Gardasil: Assessment & Plan (04/01/2022 3:13 PM CDT): Pap done. RTO 12m. I will send the results to the portal. If she has not heard in a week, to call the office. Assessment & Plan (03/25/2021 4:15 PM CDT): Pap done. RTO 12m. I will send the results to the portal. If she has not heard in a week, to call the office. Natural family planning reviewed. To continue with MVI Elderly multigravida in first trimester 06/25/2017 06/09/2018 Rh negative state in antepartum period 06/03/2017 06/09/2018 Pain of both breasts 01/26/2017 018 Assessment & Plan (01/26/2017 10:07 PM CDT): Encourage monthly self-breast exam midcycle, not right before, during or right after menses; decrease caffeine intake; and encouraged to wear another type of bra besides underwire which can be problematic for breast tenderness; call office if pain persists beyond recommended changes. Vaginal delivery 06/09/2018 39 weeks gestation of 06/09/2018 Immunizations Immunization Administration Dates Next Due Anthrax 02/03/2005 DTaP 03/17/2012 H1N1 Inj 07/27/2009 Hep A / Hep B 07/29/2004,12/08/2003,11/07/2003 IPV 11/02/2003 Influenza LAIV (Nasal) 03/21/2023,04/22/2013,12/2007 Influenza, Quadrivalent, Spl it, Intramuscular 05/24/2021,03/25/2019,03/13/2017 Influenza, Quadrivalent, Spl it, Preservative Free, Intramuscular 04/24/2022,04/26/2020,04/24/2018 Influenza, Split 04/26/2010, 9,05/29/2006,08/20,07/29/2004 Influenza, Trivalent, High D ose, Split, Preservative Free, Intramuscular 03/04/2017,03/26/2016,03/14/2015 Influenza, Trivalent, IM (MDV) 03/13/2017,2013,03/21/2011 Influenza, Trivalent, Preser vative Free, Intramuscular 03/23/2015,02/19/2014,05/21/2012 Influenza, Unspecified 02/19/2022,2019,03/21/2019,06/21(Deferred: Patient Refused),03/13/2017,03/04/2017, 016,03/17/2016,03/14/2015,02/19/2014 Influenza, Whole 04/02/2005,11/02/2003 Meningococcal Polysaccharide (Menomune) 11/02/2003 PPD TEST 12/30/2005,11/02/2003 Smallpox 02/03/2005 Td, adsorbed 01/24/2022,11/02/2003 Tdap 11/22/2017,03/17/2012,01/03/2012 Typhoid Live 02/03/2005 Surgical History Surgery Date Site/Laterality Comments OTHER SURGICAL HISTORY uncomplicated term : OTHER SURGICAL HISTORY 06/21/2008 - 06/20/2009 : 48 hr labor OTHER SURGICAL HISTORY LGSIL pap: Resolved OTHER SURGICAL HISTORY 06/21/2011 - 06/20/2012 : DILATION AND CURETTAGE OF UTERUS 06/21/2010 - 06/20/2011 SAB COLONOSCOPY 06/21/2011 - 06/20/2012 BREAST BIOPSY 03/30/2023 Right Medical History Medical History Date Comments Hx Other Medical 2008 uncomplicated t erm Hx Other Medical 2009 ; Outc ome: 40 week 6 lb(s) 12 oz Male Hx Other Medical chlamydia hx Hx Other Medical 2008 LGSIL pap Hx Other Medical 2011 Hx Other Medical eczema; Comment s: JANIE 06/07/2014 - Hx Other Medical OCD; Comments: JANIE 06/07/2014 - Smoking Family History Medical History Relation Name Comments Other Father Healthy; Lung cancer Maternal Grandfather Cancer, lung; Asthma Mother Asthma; Other Mother healthy; Cancer Other no change 04/01 Lung cancer Paternal Grandfather Cancer, lung; Lung cancer Paternal Grandmother Cancer, lung; Breast cancer Neg Hx no change cmt 04/23/23 Ovarian cancer Neg Hx Thyroid cancer Neg Hx Relation Name Status Comments Father Alive Maternal Grandfather Mother Alive Other Other with leandro ekemia. No colon, breast or fire regulator cancer. 03/25/21 Paternal Grandfather Paternal Grandmother Social History Tobacco Use Types Packs/Day Years Used Date Smoking Tobacco: Former Smokeless Tobacco: Never Tobacco Cessation:Counseling Given: Not Answered Comments:Smoking History Packs/day: 1 Packs Alcohol Use Standard Drinks/Week Comments No 0 (1 standard drink = 0.6 oz pur e alcohol) Humiliation, Afraid, Rape, and Kick questionnair e Answer Date Recorded Within the last year, have y ou been afraid of your partner or ex-partner? No 04/23/2023 Within the last year, have y ou been humiliated or emotionally abused in other ways by your partner or ex-partner? No Within the last year, have y ou been kicked, hit, slapped, or otherwise physically hurt by your partner or ex-partner? No 04/23/2023 Within the last year, have y ou been raped or forced to have any kind of sexual activity by your partner or ex-partner? No 04/23/2023 AUDIT-C Answer Date Recorded Q1: How often do you have a drink containing alc ohol? Never 03/23/2022 Average Number of Drinks Not on file 022 Frequency of Binge Drinking Not on file 08/2021 PHQ-2 Answer Date Recorded PHQ-2 Total Score (If total score is 3 or more points, staff should administer the PHQ-9) 0 01/05/2024 Personal Safety Answer Date Recorded Have you ever been in or are you currently in a harmful physical or emotional relationship or is someone making you feel afraid or unsafe? Denies 12/30/2023 Comments No Sex and Gender Information Value Date Recorded Sex Assigned at Not on file Legal Sex Female 1:32 PM MARBLE MACHINE OPERATOR Gender Identity Not on file Sexual Orientation Not on file Obstetrics History Para Term AB IAB SAB Ectopic Multiple Livin g Live Births 5 3 3 2 2 0 3 3 Date Outcome GA Total Labor Labor//3rd Weight Sex Type Anes PTL [place] A1 A5 Name Clin 2004 SAB 6w0 d 2008 Term 41w 0d 3.062 kg (6 lb 12 oz) M Vag-S pont Epidur al N Livin g Leno dillon Complications:None 2010 SAB 10w 0d D&C 2011 Term 41w 0d 3.232 kg (7 lb 2 oz) M Vag-S pont Epidur al N Livin g Margie Complications:None 2017 Term 39w 1d 7h 10m 7h 00m/0h 03m/0h 07m 3.918 kg (8 lb 10.2 oz) M Vag-S pont Epidur al N Livin g 7 9 Prasanth Nair MD Complications:None Delivery Location:This [facility] ([facility]) Last Filed Vital Signs Vital Sign Reading Time Taken Comments Blood Pressure 108/70 01/05/2024 9:22 AM CDT Pulse 62 01/05/2024 9:22 AM CDT Temperature 36.6 C (97.9 F) 01/05/2024 9:22 AM CDT Respiratory Rate 16 01/05/2024 9:22 AM CDT Oxygen Saturation 98% 01/05/2024 9:22 AM CDT room air Inhaled Oxygen Concentration - - Weight 88.9 kg (196 lb) 01/05/2024 9:22 AM CDT Height 172.7 cm (5' 8 ) 01/05/2024 9:22 AM CDT Body Mass Index 29.8 01/05/2024 9:22 AM CDT Plan of Treatment Health Maintenance Due Date Last Done Comments Varicella Vaccines (1 of 2 - 13+ 2-dose series) 04/18/2023 Influenza Vaccine (#1) 2024 , 04/24/2022, 02/19/2022, Additional history exists Breast Cancer Screening-Mammogram 03/16/2024 03/16/2023, 02/12/2023 Cervical Cancer Screening 04/23/20242022, 04/01/2022, 03/25/2021, Additional history exists Regular Well Visit/Exam 18-64 08/11/2024 08/11/2023, 04/23/2023, 04/01/2022, Additional history exists Depression Screening 01/04/2025 01/05/2024, 08/11/2023, 04/23/2023, Additional history exists DTaP/Tdap/Td Vaccine (6 - Td or Tdap) 01/25/2032 01/24/2022, 11/22/2017, 03/17/2012, Additional history exists Hepatitis B Screening Completed 07/29/2004 , 12/08/2003, 11/07/2003 Hepatitis C Screening Completed 06/25/2017 HPV Vaccines Aged Out No longer eligi ble based on patient's age to complete this topic Pneumococcal vaccine <65 Aged Out No longer eligible based on patient's age to complete this topic Medical Devices Implanted Type Area Director Of Collections And Archives Device Identifier Shelf Expiration Date Model / Serial / Lot Bard Peripheral Vascular Marker Breast Dual Trigger Pva Ultraclip [id number] - [id number] - [id number] Implanted:Qty: 1 on 03/30/2023 by Charu De Santiago MD at [facility] Breast Right: Breast [employer] 05/18/2025 [id number] / [id number] Description:Implanted Right Breast 7:00 area 7-8 cmfn Procedures Procedure Name Priority Date/Time Associated Diagnosis Comments PAP AND HPV, REFLEX TO HPV GENOTYPES Routine 04/23/2023 3:13 PM CDT Well woman exam DIAGNOSTIC MAMMOGRAM BILATERAL W ANIL Schedule Routine, Read Routine (OP Routine) 03/16/2023 11:09 AM CDT Abnormal mammogram of both breasts HEPATITIS C ANTIBODY Routine 06/25/2017 5:28 PM MARBLE MACHINE OPERATOR Encounter for supervision of other normal in first trimester from Last 3 Months or Most Recently Relevant to Health Maintenance Results * Pap and HPV, reflex to HPV Genotypes (04/23/2023 3:13 PM CDT) CLINICAL INFORMATION: [facility] Comment:None given LMP [facility] Comment:04/19/2023 Previous Pap [facility] Comment:None given Prev. Bx [facility] [employer] [facility] Comment:None given SOURCE: [facility] Comment:Cervix, Endocervix Pap, specimen adequacy [facility] Comment: Satisfactory for evaluation. Endocervical/transformation zone component present. HPV interp [facility] Comment: Cytology Results: Negative for intraepithelial lesion or malignancy. 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 It is not a diagnostic test and is subject to false negative and false positive results. It is most reliable when a satisfactory sample, regularly obtained, is submitted with relevant clinical findings and history, and when the Pap result is evaluated along with historic and current clinical information. EFFECTIVE MAY 17, 2023, the version of ThinPrep you ordered, commonly known as manual ThinPrep, will be DISCONTINUED. An alternative form of ThinPrep, called ThinPrep Imaging, will continue to be available. For a copy of the client communication (TIS Client Letter) showing TIS test codes, see [email or web address], and navigate to Well-Woman>Physician Materials>TIS Client Letter. You can also call for test code assistance. Human papillomavirus DNA, High Risk E6/E7 Not Detected NOT DETECTED [facility] [place] Comment: Not Detected High Risk HPV types (16,18,31,33,35,39,45,51,52, 56,58,59,66,68) were not detected. Other HPV types which cause anogenital lesions may be present. The significance of the other types of HPV in malignant processes has not been established. Methodology: Real Time PCR Thin prep 04/23/2023 3:13 PM CDT 04/24/2023 5:11 AM CDT us Sariah Rubio MD LAB CYTOLOGY ORDERA BLES Final Result [facility] [address] [place] [address] [facility] [address] [place] [address] * (ABNORMAL) DIAGNOSTIC MAMMOGRAM BILATERAL W ANIL (03/16/2023 11:09 AM CDT) Anatomical Region Laterality Modality Breast Bilateral Mammography 03/16/2023 12:0 2 PM CDT Impressions 03/16/2023 12:02 PM CDT 1. The 2.1 cm lobular heterogeneous mass at the 7 o'clock position of the right breast, 7-8 cm from the nipple is suspicious for malignancy (low suspicion). This could potentially represent a focal area of fibrocystic breast tissue. Ultrasound-guided biopsy is recommended. 2. No evidence of suspicious right axillary lymphadenopathy on ultrasound. 3. Benign 0.8 cm intramammary lymph node at the 10 o'clock position of the right breast, 8 cm from the nipple. 4. The CC view asymmetry in the lateral left breast on screening mammogram represents an area of benign dense breast tissue. 5. No mammographic evidence of malignancy in the left breast. Recommend screening mammography of the left breast in one year. BI-RADS: 4A - Suspicious for malignancy (low suspicion). I discussed the findings and impression with the patient at the time of the examination. This facility will contact the referring clinician's office to obtain an order for the biopsy. The patient will then be contacted to schedule the biopsy appointment. Electronically signed by: Logan Marie M.D. Narrative 03/16/2023 12:02 PM CDT EXAMINATION: DIAGNOSTIC MAMMOGRAM BILATERAL W ANIL, US BREAST RIGHT LIMITED ORDERING HEALTHCARE PROVIDER: DHIRAJ MENG HISTORY: 38-year-old female recalled for indeterminate bilateral breast asymmetries on baseline screening mammogram. COMPARISON: 02/12/2023 TECHNIQUE: Full field LM views and spot compression CC views of the bilateral breasts, full field CC view of the left breast, and spot compression MLO view of the right breast were obtained with digital technique using breast tomosynthesis with C view. Computer aided detection was utilized. Limited ultrasound of the right breast was performed with grayscale and color Doppler. FINDINGS: BREAST DENSITY: There are scattered fibroglandular elements in the bilateral breasts. MAMMOGRAM FINDINGS: Within the right breast at 6-7 o'clock, posterior depth, there is an oval mass with partially circumscribed, partially obscured margins measuring approximately 2.3 cm in greatest dimension. This corresponds with the screening detected focal asymmetry. There are a few punctate microcalcifications associated with this mass, which appear to layer dependently on the MLO view. There is no associated architectural distortion. Within the right breast at the 10 o'clock position, posterior depth, there is a 0.8 cm oval circumscribed mass with reniform morphology, which is favored to represent a benign intramammary lymph node. There are no microcalcifications or architectural distortion associated with this mass. There is no other suspicious finding in the right breast on mammogram. The CC view asymmetry in the lateral left breast, middle depth, detected on screening mammogram disperses with spot compression, evidence of benign summation artifact of normal dense tissue. There is no suspicious finding in the left breast on mammogram. ULTRASOUND FINDINGS: Targeted ultrasound of the right breast at the 7 o'clock position, 7-8 cm from the nipple demonstrates a 2.1 x 0.6 x 0.8 cm lobular mass with mixed hypoechoic and anechoic internal echotexture, parallel orientation, no significant posterior acoustic shadowing or increased through transmission, and trace internal blood flow on color Doppler. Targeted ultrasound of the right breast at the 10 o'clock position, 8 cm from nipple demonstrates a benign morphology intramammary lymph node measuring 0.8 x 0.3 x 0.7 cm. Sonographic evaluation of the right axilla demonstrates only benign morphology lymph nodes with no evidence of suspicious axillary lymphadenopathy. Dhiraj Meng MD IMG MAMMO PROCEDURES Final Result * Hepatitis C antibody (06/25/2017 5:28 PM MARBLE MACHINE OPERATOR) Hep C Ab Negative Negative [facility]EL[facility] LYMAN ([place]) Comment:Testing performed by : [facility], [address] [place] [address], [id number] Blood specimen (specimen) 06/25/2017 5:28 PM MARBLE MACHINE OPERATOR 06/26/2017 7:11 PM MARBLE MACHINE OPERATOR Narrative [facility]YMAN ([place]) - 06/26/2017 9:17 PM MARBLE MACHINE OPERATOR Dhiraj Meng MD LAB MICROBIOLOGY - GENERAL ORDERABLES Final Result [facility] ([place]) [facility] [place] [address] from Last 3 Months or Most Recently Relevant to Health Maintenance Insurance [facility] CLAIMS [facility] CLAIMS Advance Directives For more information, please contact: [phone] * Full Code (Latest Code Status on File) Date Activated Date Inactivated Comments 02/12/2022 7:52 AM 02/12/2022 2:00 PM * Full Code Date Activated Date Inactivated Comments 02/12/2022 7:52 AM 02/12/2022 7:52 AM * Full Code Date Activated Date Inactivated Comments 2018 8:57 PM 01/21/2018 4:54 PM Full CPR in c ase of cardiopulmonary arrest Care Teams Rn Unit Manager Relationship Specialty Start Date End Date Martinez Ovalle MD [address] [place] [address] PCP - General 09/18/16
--- OUTSIDE RECORDS SUMMARY | 2024-09-04 19:20 | XMS_ITS | Clinical Summary ---
Author Organization [facility] Address [address] [place] [address] Phone Care Team Providers Care Quality Inspector Name Role Phone Martinez Ovalle MD Primary Care Provider [phone] [phone] Allergies No known active allergies Medications ondansetron (ZOFRAN) 4 MG Tablet Take 1-2 Tabs by mouth every 8 hours as needed for Nausea. 10 Tab 0 6 Active Additional Information Patient not taking.Reported on 05/28/2017 esomeprazole (NEXIUM) 20 MG CAPSULE DELAYED RELEASE Take 2 Caps by mouth daily. 30 Cap 0 6 Active Additional Information Patient not taking.Reported on 05/28/2017 escitalopram (LEXAPRO) 20 MG Tablet Take 20 mg by mouth daily. Active guaiFENesin-code ine (TUSSI-ORGANIDIN NR) 100-10 MG/5ML Syrup Take 5 mL by mouth every 4 hours as needed for Cough. 120 mL 1 6 Active Additional Information Patient not taking.Reported on 05/28/2017 traZODone (DESYREL) 50 MG Tablet Take 1 Tab by mouth nightly as needed for Sleep. 20 Tab 0 6 Active Additional Information Patient not taking.Reported on 05/28/2017 cyclobenzaprine (FLEXERIL) 5 MG Tablet Take 1 Tab by mouth 3 times daily as needed. 10 Tab 0 7 Active Additional Information Patient not taking.Reported on 05/28/2017 ondansetron (ZOFRAN-ODT) 4 MG TABLET DISPERSIBLE Take 1 Tab by mouth every 8 hours as needed for Nausea. 10 Tab 7 Active Additional Information Patient not taking.Reported on 05/28/2017 triamcinolone (ARISTOCORT) 0.5 % Ointment Apply 0.5 Inches 2 times daily. Application Site: R knee 45 g 7 Active Additional Information Patient not taking.Reported on 05/28/2017 cetirizine (ZYRTEC) 10 MG Tablet Take 10 mg by mouth daily. 9 Active Vibegron (Gemtesa) 75 MG Tablet TAKE 1 TABLET BY MOUTH DAILY 90 Tablet 3 4 Active Active Problems Problem Noted Date Diagnosed Date Ingrown right greater toenail 05/28/2017 Pain of right great toe 05/28/2017 Family History Relation Name Status Comments Father Alive Mother Alive Social History Tobacco Use Types Packs/Day Years Used Date Smoking Tobacco: Every Day Cigarettes 0.5 12 Smokeless Tobacco: Never Tobacco Cessation:Counseling Given: Yes Alcohol Use Standard Drinks/Week Comments No 0 [...] Sign Reading Time Taken Comments Blood Pressure 110/79 01/01/2022 5:37 PM CDT Pulse 76 01/01/2022 5:37 PM CDT Temperature 36 C (96.8 F) 01/01/2022 3:51 PM CDT Respiratory Rate 16 01/01/2022 5:37 PM CDT Oxygen Saturation 99% 01/01/2022 5:37 PM CDT Inhaled Oxygen Concentration - - Weight 83.9 kg (185 lb) 01/01/2022 3:52 PM CDT Height 172.7 cm (5' 8 ) 01/01/2022 3:52 PM CDT Body Mass Index 28.13 01/01/2022 3:52 PM CDT Plan of Treatment Health Maintenance Due Date Last Done Comments Hepatitis C Virus (HCV) Screening 1983 Mammogram 1983 Hepatitis B Immunization (1 of 3 - 19+ 3-dose series) 2002 Pap Smear 01/19/2004 Cervical Cancer Screening (CCS) 2013 HPV/Cotest 2013 Discussion re Starting/Frequency of Mammograms 2023 Influenza Immunization (#1) 2024 11/0 11/2019, 03/21/2019, 03/13/2017, Additional history exists SARS-COV-2 Immunization ( season) 2024 09/16/2020, 08/19/2020 Respiratory Syncytial Virus (RSV) Immunization (Adult) (1 - 1-dose 75+ series) 2058 DTaP/Tdap/Td Immunization Discontinued 11/22/2017, TdaP Immunization Completed 11/22/2017, 03/17/2012 Meningococcal Immunization (ACWY) Aged Out No longer eligible based on patient's age to complete this topic Pneumococcal Immunization Combined Aged Out No longer eligible based on patient's age to complete this topic Rotavirus Immunization Aged Out No lo nger eligible based on patient's age to complete this topic Insurance [facility] Member Subscriber Plan / Payer (Ef fective for All Dates) Name:Danielle Ray Member ID:[id number] Relation to Subscriber:Self Name:Danielle Ray Subscriber ID:[id number] Payer ID:[id number] Group ID:NONE Type:Not on file Address: [address] [address] Advance Directives * Full Code (Latest Code Status on File) Date Activated Date Inactivated Comments 10/27/2017 9:54 PM 10/28/2017 3:35 AM CPR-Full Anum tment: FULL ARREST: Attempt Resuscitation/CPR wit intubation and mechanical ventilation. PRE-ARREST: Use entire range of life support measures to stabilize the patient. Care Teams Quality Inspector Relationship Specialty Start Date End Date Martinez Ovalle MD [address] [place] [address] PCP - General Internal Medicine 07/11/15
--- OUTSIDE RECORDS SUMMARY | 2024-09-04 19:20 | XMS_ITS | Clinical Summary ---
Author Organization [facility] Address [address] [facility] [place] [address] Care Team Providers Care Dumping Machine Operator Name Role Phone Unavailable Primary Care Provider Unavailabl e Source Comments [facility],non-owned Affiliates and Associated Physician Practices is amultiple site organization consisting of ambulatory clinics and hospital sitesin [place], [place], [place] and [place]. This disclosure is being madepursuant to the Care Everywhere program and may not contain all information available regarding this patient. Last updated 18.[facility] Social History Tobacco Use Types Packs/Day Years Used Date Smoking Tobacco: Never Assessed Sex and Gender Information Value Date Recorded Sex Assigned at Not on file Gender Identity Not on file Sexual Orientation Not on file Plan of Treatment Health Maintenance Due Date Last Done Comments LIPID TESTING 1983 MAMMOGRAM 1983 PAP SMEAR 1983 HIV SCREENING 1998 HEPATITIS C SCREENING 01/13/2001 DTAP/TDAP/TD VACCINES (1 - Tdap) 2002 HEPATITIS B VACCINE (1 of 3 - 19+ 3-dose series) 2002 COVID-19 VACCINE ( - 2023-2 5 season) 2024 INFLUENZA VACCINE (#1) 2024 DEPRESSION SCREENING 06/21/2024 ZOSTER VACCINE (1 of 2) 2033 HIB VACCINE Aged Out No longer eligi ble based on patient's age to complete this topic HPV VACCINE Aged Out No longer eligi ble based on patient's age to complete this topic MENINGOCOCCAL (Group B) VACC INE SHARED DECISION-MAKING Aged Out No longer eligibl e based on patient's age to complete this topic MENINGOCOCCAL GROUPS A/C/Y/W VACCINE Aged Out No longer eligible b ased on patient's age to complete this topic PNEUMOCOCCAL VACCINE Aged Out No long er eligible based on patient's age to complete this topic
--- OUTSIDE RECORDS SUMMARY | 2024-09-04 19:20 | XMS_ITS | Referral Summary ---
Author Organization [facility] Address [address] [place] [address] Care Team Providers Care Director Financial Systems Name Role Phone Martinez Ovalle MD Primary Care Provider [phone] [phone] Allergies No known active allergies Medications ALPRAZolam [...] (02/03/2022): Added automatically from request for surgery [id number] Skin cyst 03/25/2021 Assessment & Plan (03/25/2021 4:16 PM CDT): No active drainage. To discuss with derm as she has an appt scheduled with them. We discussed trying a deodorant only. Dizziness 05/08/2019 Assessment & Plan (05/08/2019 4:01 PM HOSPITAL CLINIC ASSISTANT): Instructed to increase daily water intake. She has been using a ketogenic diet, has been advised to eat a more structured meal plan that includes daily dietary fiber hydration and a healthy balance of protein and fats. Acute pain of left knee 05/08/2019 Assessment & Plan (05/08/2019 4:02 PM HOSPITAL CLINIC ASSISTANT): She does not wish to have imaging at this time. Will order physical therapy. Advised to use [id number] NSAIDs use as directed on the package. [...] adsorbed 01/24/2022,11/02/2003 Tdap 11/22/2017,03/17/2012,01/03/2012 Typhoid Live 02/03/2005 Social History Tobacco Use Types Packs/Day Years [...] on file Legal Sex Female 1:32 PM HOSPITAL CLINIC ASSISTANT Gender Identity Not on file Sexual Orientation [...] 01/05/2024 9:22 AM CDT Plan of Treatment Not on file Medical Devices Implanted Type Area Pipe Fitter Supervisor Maintenance Device Identifier Shelf Expiration Date Model / Serial / Lot Bard Peripheral Vascular Marker Breast Dual Trigger Pva Ultraclip [id number] - [id number] - [id number] Implanted:Qty: 1 on 03/30/2023 by Charu De Santiago MD at [facility] Breast Right: Breast [employer] Peripheral Vascular 05/18/2025 [id number] / [id number] Description:Implanted Right Breast 7:00 area 7-8 cmfn Procedures Procedure Name Priority Date/Time Associated Diagnosis Comments PAP AND HPV, REFLEX TO HPV GENOTYPES Routine 04/23/2023 3:13 PM CDT Well woman exam DIAGNOSTIC MAMMOGRAM BILATERAL W ANIL Schedule Routine, Read Routine (OP Routine) 03/16/2023 11:09 AM CDT Abnormal mammogram of both breasts HEPATITIS C ANTIBODY Routine 06/25/2017 5:28 PM HOSPITAL CLINIC ASSISTANT Encounter for supervision of other normal in first trimester from Last 3 Months or Most Recently Relevant to Health Maintenance Results * Pap and HPV, reflex to HPV Genotypes (04/23/2023 3:13 PM CDT) CLINICAL INFORMATION: [employer] [facility] Comment:None given [facility]MP [facility] Comment:04/19/2023 Previous Pap [employer] [facility] Comment:None given Prev. Bx [facility] Comment:None given SOURCE: [employer] [facility] Comment:Cervix, Endocervix Pap, specimen adequacy [employer] [facility] Comment: Satisfactory for evaluation. Endocervical/transformation zone component present. HPV interp [employer] [facility] Comment: Cytology Results: Negative for intraepithelial lesion or malignancy. Duster Tender [facility] Find That File [facility] Comment: MMD, CT(ASCP) CT Screening Location: [place] [address] Comment [facility] Comment: EXPLANATORY NOTE: The Pap is a [...] Client Letter) showing TIS test codes, see [email or web address].B[employer]/Resources, and navigate to Well-Woman>Physician Materials>TIS Client Letter. You can also call for test code assistance. Human papillomavirus DNA, High Risk E6/E7 Not Detected NOT DETECTED [employer] [facility]ie [facility] Comment: Not Detected High Risk HPV types (16,18,31,33,35,39,45,51,52, 56,58,59,66,68) were not detected. Other HPV types which cause anogenital lesions may be present. The significance of the other types of HPV in malignant processes has not been established. Methodology: Real Time PCR Thin prep 04/23/2023 3:13 PM CDT 04/24/2023 5:11 AM CDT Sariah Rubio MD LAB CYTOLOGY ORDERA BLES Final Result [facility] [address] [place] [address] [employer] [address] [facility] [place] [address] * (ABNORMAL) DIAGNOSTIC MAMMOGRAM BILATERAL W ANIL [...] * Hepatitis C antibody (06/25/2017 5:28 PM HOSPITAL CLINIC ASSISTANT) Hep C Ab Negative Negative [facility] ([facility]) Comment:Testing performed by : [facility], [address] [place] [address], [place]., [address] Blood specimen (specimen) 06/25/2017 5:28 PM HOSPITAL CLINIC ASSISTANT 06/26/2017 7:11 PM HOSPITAL CLINIC ASSISTANT Narrative [facility]) - 06/26/2017 9:17 PM HOSPITAL CLINIC ASSISTANT Dhiraj Meng MD LAB MICROBIOLOGY - GENERAL ORDERABLES Final Result [facility]) [address] [facility] [place] [address] from Last 3 Months or Most Recently Relevant to Health Maintenance Insurance [facility] Advance Directives For more information, please contact: [phone] * Full Code (Latest Code Status on File) Date Activated Date Inactivated Comments 02/12/2022 7:52 AM 02/12/2022 2:00 PM * Full Code Date Activated Date Inactivated Comments 02/12/2022 7:52 AM 02/12/2022 7:52 AM * Full Code Date Activated Date Inactivated Comments 2018 8:57 PM 01/21/2018 4:54 PM Full CPR in case of cardiopulmonary arrest Care Teams Director Financial Systems Relationship Specialty Start Date End Date Martinez Ovalle MD [address] [place] [address] PCP - General 09/18/16
--- NOTE | 2024-09-04 19:40 | ED.LOWEXIN ---
HPI - Extremity Injury (Lower) General Chief Complaint: Extremity Injury, Lower Stated Complaint: Toe Injury Time Seen by Provider: 09/04/24 19:33 Source: patient and RN notes reviewed Mode of arrival: ambulatory Limitations: no limitations History of Present Illness HPI Narrative: Patient presents today complaining of an injury to the left 1st toe. She dropped a 20 lb decorative object at home on her foot approximately 2 hours prior to exam. Pain to the toe and 1st metatarsal. Denies numbness or tingling. No [id number] treatment prior to arrival. Believe she is up-to-date on her tetanus vaccine. Related Data Home Medications ?Medication ?Instructions ?Recorded ?Confirmed ?Last Taken ?Type cetirizine 10 mg tablet 10 mg PO DAILY 06/26/22 06/15/24 Unknown History escitalopram oxalate 20 mg tablet 20 mg PO DAILY 06/26/22 06/15/24 Unknown History Allergies Allergy/AdvReac Type Severity Reaction Status Date / Time No Known Allergies Allergy Verified 09/04/24 19:00 Review of Systems Review of Systems: CONSTITUTIONAL: Denies body aches, fever, chills, or sweats. EYES: Denies visual changes, redness, or discharge. ENT: Denies rhinorrhea, congestion, sore throat, or otalgia. CARDIOVASCULAR: Denies chest pain, palpitations, or edema. RESPIRATORY: Denies cough or dyspnea. GASTROINTESTINAL: Denies abdominal pain, nausea, vomiting, or diarrhea. GENITOURINARY: Denies dysuria or hematuria. SKIN: Denies rash, itching, or wounds. MUSCULOSKELETAL: Denies back pain. + left 1st toe and foot injury NEUROLOGIC: Denies headache, numbness, tingling, or weakness. PSYCH: Denies depression or anxiety. [facility] Past Medical History Medical History GERD (gastroesophageal reflux disease) Anxiety Family History Family History Mother Depression Sibling Depression Sibling Depression Grandparent Depression Cancer Alcoholism Grandparent Depression Cancer Alcoholism Social History Social History Smoking status: Former smoker Tobacco type: cigarettes Second hand tobacco smoke exposure: Yes Alcohol intake: never Substance use: never Substance use type: does not use Do You Feel Safe in your Home?: Yes Lack of Transportation: No Lack of Food: Never True Current Housing: I Have Housing Concerned About Future Housing: No Difficulty Paying Gas/Electric Bills: No Difficulty Paying for Meds: No Currently Unemployed: No Education: Master's Degree or Higher Difficulty w/ Childcare or Family Care: No Living arrangements: with family Gender identity (if verbalized by the patient): Female Spiritual care concerns: No Agree to blood products: Yes Comments At time of signature, I have reviewed and agree with nursing past medical, surgical, social and family history unless otherwise noted. Please see nursing chart for further information. There is no relevant family history pertinent to the presenting complaint Exam Narrative: GENERAL: Well-appearing, well-nourished, and in no acute distress. HEAD: Normocephalic, atraumatic. EYES: EOMI. No redness or drainage. Conjunctivae normal. ENT: Mucous membranes pink and moist. NECK: Normal AROM. CHEST: No respiratory distress. EXTREMITIES: Left 1st toe: Tenderness to the toe an lesser to the 1st metatarsal. Small superficial abrasion to the cuticle of the 1st toe with some scant active bleeding. Toenail unaffected. Distal sensation intact. Capillary refill normal. Pedal pulse normal. Full range of motion of affected toe SKIN: Warm, dry, no rash. Capillary refill normal. Normal skin turgor. NEURO: No focal deficits. Alert and oriented x3. Gait steady. PSYCH: Normal affect. No signs of depression or anxiety. Course Course Level of Care: Express Care Visit Vital Signs Vital signs: Vital Signs Temperature 98.3 F 09/04/24 18:52 Pulse Rate 74 09/04/24 18:52 Respiratory Rate 20 09/04/24 18:52 Blood Pressure 147/93 H 09/04/24 18:52 Pulse Oximetry 97 09/04/24 18:52 Oxygen Delivery Room Air 09/04/24 18:52 Temperature 98.3 F 09/04/24 18:52 Pulse Rate 74 09/04/24 18:52 Respiratory Rate 20 09/04/24 18:52 Blood Pressure 147/93 H 09/04/24 18:52 Pulse Oximetry 97 09/04/24 18:52 Oxygen Delivery Room Air 09/04/24 18:52 Reviewed MDM - Extremity Injury (Lower) MDM Narrative Medical decision making narrative: Wound was cleansed. Hemostasis achieved with some pressure. Bandaid applied. X-rays negative for fracture. Anticipatory guidance given. Differential Diagnosis Differential diagnosis: Likely other (Toe fracture, foot fracture, subungual hematoma, laceration, abrasion) Imaging Data Radiologist's impression: ITS Impressions Foot X-Ray 09/04/24 19:23 IMPRESSION: No acute fracture or dislocation Critical Care Time Critical Care Time Critical Care Time: No Discharge Plan Discharge Clinical Impression: Contusion of left great toe without damage to nail Qualifiers: Encounter type: initial encounter Qualified Code(s): S90.112A - Contusion of left great toe without damage to nail, initial encounter Patient Disposition: Home, Self-Care Condition: Stable Instructions: Contusion in Adults (ED) Additional Instructions: Your x-ray is negative for fracture. The abrasion to your toe should heal without issue, but monitor for any signs of infection such as redness, swelling, increased pain or drainage, and follow-up with your doctor if you note any. Keep the area covered until scabbed over. Take Tylenol or ibuprofen for pain if needed. Follow-up with your PCP with any additional concerns. Your blood pressure was elevated above 120/80 today at Urgent Care. This puts you above the threshold for follow up. Please schedule a followup visit with your personal physician as soon as possible, for further evaluation and treatment. Even blood pressure exceeding 120/80 may indicate pre-hypertension. Patient Language: Belarusian Prescriptions: No Action cetirizine 10 mg tablet 10 mg PO DAILY escitalopram oxalate 20 mg tablet 20 mg PO DAILY omeprazole 40 mg capsule,delayed release(DR/EC) 40 mg PO DAILY Qty: 30 2RF Follow-up/Referrals: Guillermo Swanson MD [Primary Care Provider] - Time of Disposition: 19:45
== END 2024-09-04 19:47 | disposition home or self-care (01) ==
PROVIDERS: Emergency Provider Nurse Practitioner; PCP Family Medicine
DX: S90.112A Contusion of left great toe without damage to nail, initial encounter (principal); W20.8XXA Other cause of strike by thrown, projected or falling object, initial encounter; K21.9 Gastro-esophageal reflux disease without esophagitis; F41.9 Anxiety disorder, unspecified; Z87.891 Personal history of nicotine dependence
CPT/HCPCS: 73630; 99213; G0463

== ENCOUNTER 2024-10-27 00:46 | Day surgery (SDC) | payer OTHER, SELFPAY ==
[2024-10-13 14:34] VITALS: BMI 29.3
--- OUTSIDE RECORDS SUMMARY | 2024-10-27 00:48 | XMS_ITS | Clinical Summary ---
Author Organization [facility] Address [address] [place] [address] Phone Care Team Providers Care Print Project Manager Name Role Phone Martinez Ovalle MD Primary Care Provider [phone] [phone] Allergies No known active allergies Medications ondansetron [...] patient's age to complete this topic Insurance [facility] Member Subscriber Plan / Payer (Ef fective for All Dates) Name:Danielle Ray Member ID:[id number] Relation to Subscriber:Self Name:Danielle Ray Subscriber ID:[id number] Payer ID:[id number] Group ID:[id number] Type:Not on file Address: [address] [address] Advance Directives * Full Code (Latest Code Status on File) Date Activated Date Inactivated Comments 10/27/2017 9:54 PM 10/28/2017 3:35 AM CPR-Full Anum tment: FULL ARREST: Attempt Resuscitation/CPR wit intubation and mechanical ventilation. PRE-ARREST: Use entire range of life support measures to stabilize the patient. Care Teams Print Project Manager Relationship Specialty Start Date End Date Martinez Ovalle MD [address] [place] [address] PCP - General Internal Medicine 07/11/15
--- OUTSIDE RECORDS SUMMARY | 2024-10-27 00:48 | XMS_ITS | Referral Summary ---
Author Organization [facility] Medical Office Building B Address [address] [place] [address] Care Team Providers Care Ordnance Mechanic Name Role Phone Martinez Ovalle MD Primary Care Provider [phone] Allergies No known active allergies Medications ALPRAZolam [...] (02/03/2022): Added automatically from request for surgery [id number] Skin cyst 03/25/2021 Assessment & Plan (03/25/2021 4:16 PM CDT): No active drainage. To discuss with derm as she has an appt scheduled with them. We discussed trying a deodorant only. Dizziness 05/08/2019 Assessment & Plan (05/08/2019 4:01 PM ENTRY LEVEL MARKETING REPRESENTATIVE): Instructed to increase daily water intake. She has been using a ketogenic diet, has been advised to eat a more structured meal plan that includes daily dietary fiber hydration and a healthy balance of protein and fats. Acute pain of left knee 05/08/2019 Assessment & Plan (05/08/2019 4:02 PM ENTRY LEVEL MARKETING REPRESENTATIVE): She does not wish to have imaging at this time. Will order physical therapy. Advised to use [id number] NSAIDs use as directed on the package. [...] on file Legal Sex Female 1:32 PM ENTRY LEVEL MARKETING REPRESENTATIVE Gender Identity Not on file Sexual Orientation [...] on file Medical Devices Implanted Type Area Biometrics Experimentalist Device Identifier Shelf Expiration Date Model / Serial / Lot Bard Peripheral Vascular Marker Breast Dual Trigger Pva Ultraclip [id number] - [id number] - [id number] Implanted:Qty: 1 on 03/30/2023 by Charu De Santiago MD at [facility] Breast Right: Breast Bard Peripheral Vascular 05/18/2025 [id number] / [id number] / [id number] Description:Implanted Right Breast 7:00 area 7-8 cmfn Procedures Procedure Name Priority Date/Time Associated Diagnosis Comments PAP AND HPV, REFLEX TO HPV GENOTYPES Routine 04/23/2023 3:13 PM CDT Well woman exam DIAGNOSTIC MAMMOGRAM BILATERAL W ANIL Schedule Routine, Read Routine (OP Routine) 03/16/2023 11:09 AM CDT Abnormal mammogram of both breasts HEPATITIS C ANTIBODY Routine 06/25/2017 5:28 PM ENTRY LEVEL MARKETING REPRESENTATIVE Encounter for supervision of other normal in first trimester from Last 3 Months or Most Recently Relevant to Health Maintenance Results * Pap and HPV, reflex to HPV Genotypes (04/23/2023 3:13 PM CDT) CLINICAL INFORMATION: [employer] [facility] Comment:None given [facility] Comment:04/19/2023 Previous Pap [employer] [facility] Comment:None given Prev. Bx [facility] Comment:None given SOURCE: [employer] [facility] Comment:Cervix, Endocervix Pap, specimen adequacy [employer] [facility] Comment: Satisfactory for evaluation. Endocervical/transformation zone component present. HPV interp [employer] [facility] Comment: Cytology Results: Negative for intraepithelial lesion or malignancy. Audio Visual Specialist [facility] Comment: MMD, CT(ASCP) CT Screening Location: [place] [address] Comment [facility] Comment: EXPLANATORY NOTE: The Pap is [...] Client Letter) showing TIS test codes, see [email or web address] [place]/Resources, and navigate to Well-Woman>Physician Materials>TIS Client Letter. You can also call for test code assistance. Human papillomavirus DNA, High Risk E6/E7 Not Detected NOT DETECTED [employer] /Kristie AGUILAR Comment: Not Detected High Risk HPV types (16,18,31,33,35,39,45,51,52, 56,58,59,66,68) were not detected. Other HPV types which cause anogenital lesions may be present. The significance of the other types of HPV in malignant processes has not been established. Methodology: Real Time PCR Thin prep 04/23/2023 3:13 PM CDT 04/24/2023 5:11 AM CDT Sariah Rubio MD LAB CYTOLOGY ORDERA BLES Final Result [facility] [address] [place] [address] [employer]/[place] [address] [facility] [place] [address] * (ABNORMAL) DIAGNOSTIC MAMMOGRAM BILATERAL W ANIL [...] * Hepatitis C antibody (06/25/2017 5:28 PM ENTRY LEVEL MARKETING REPRESENTATIVE) Hep C Ab Negative Negative FELICE LYMAN ([place]) Comment:Testing performed by : [facility], [address] [place] [address], [place]., [address] Blood specimen (specimen) 06/25/2017 5:28 PM ENTRY LEVEL MARKETING REPRESENTATIVE 06/26/2017 7:11 PM ENTRY LEVEL MARKETING REPRESENTATIVE Narrative [facility] ([place]) - 06/26/2017 9:17 PM ENTRY LEVEL MARKETING REPRESENTATIVE Dhiraj Meng MD LAB MICROBIOLOGY - GENERAL ORDERABLES Final Result [facility] LYMAN ([place]) 1 [facility] Department [place] [address] from Last 3 Months or Most Recently Relevant to Health Maintenance Insurance [facility] CLAIMS [facility] CLAIM[facility] Advance Directives For more information, please contact: [phone] * Full Code (Latest Code Status on File) Date Activated Date Inactivated Comments 02/12/2022 7:52 AM 02/12/2022 2:00 PM * Full Code Date Activated Date Inactivated Comments 02/12/2022 7:52 AM 02/12/2022 7:52 AM * Full Code Date Activated Date Inactivated Comments 2018 8:57 PM 01/21/2018 4:54 PM Full CPR in case of cardiopulmonary arrest Care Teams Ordnance Mechanic Relationship Specialty Start Date End Date Martinez Ovalle MD [address] [place] [address] PCP - General 09/18/16
--- OUTSIDE RECORDS SUMMARY | 2024-10-27 00:48 | XMS_ITS | Clinical Summary ---
Author Organization [facility] Medical Office Building B Address [address] [place] [address] Care Team Providers Care Yeast Stacker Name Role Phone Martinez Ovalle MD Primary Care Provider [phone] Allergies No known active allergies Medications ALPRAZolam [...] (02/03/2022): Added automatically from request for surgery [id number] Skin cyst 03/25/2021 Assessment & Plan (03/25/2021 4:16 PM CDT): No active drainage. To discuss with derm as she has an appt scheduled with them. We discussed trying a deodorant only. Dizziness 05/08/2019 Assessment & Plan (05/08/2019 4:01 PM PAINT DEPARTMENT SUPERVISOR): Instructed to increase daily water intake. She has been using a ketogenic diet, has been advised to eat a more structured meal plan that includes daily dietary fiber hydration and a healthy balance of protein and fats. Acute pain of left knee 05/08/2019 Assessment & Plan (05/08/2019 4:02 PM PAINT DEPARTMENT SUPERVISOR): She does not wish to have imaging at this time. Will order physical therapy. Advised to use [id number] NSAIDs use as directed on the package. [...] with leandro ekemia. No colon, breast or sales order specialist cancer. 03/25/21 Paternal Grandfather Paternal Grandmother Social [...] on file Legal Sex Female 1:32 PM PAINT DEPARTMENT SUPERVISOR Gender Identity Not on file Sexual Orientation [...] 9 Prasanth Nair MD Complications:None Delivery Location:This [facility] Last Filed Vital Signs Vital Sign Reading [...] of 2 - 13+ 2-dose series) 04/18/2023 Breast Cancer Screening-Mammogram 03/16/2024 03/16/2023, 02/12/2023 Cervical Cancer Screening 04/23/20242022, 04/01/2022, 03/25/2021, Additional history exists Regular Well Visit/Exam 18-64 08/11/2024 08/11/2023, 04/23/2023, 04/01/2022, Additional history exists Depression Screening 01/04/2025 01/05/2024, 08/11/2023, 04/23/2023, Additional history exists Influenza Vaccine (Season Ended) 2025 03/21/2023, 04/24/2022, 02/19/2022, Additional history exists DTaP/Tdap/Td Vaccine (6 - [...] this topic Medical Devices Implanted Type Area Administrative Services Officer Device Identifier Shelf Expiration Date Model / Serial / Lot Bard Peripheral Vascular Marker Breast Dual Trigger Pva Ultraclip [id number] - [id number] - [id number] Implanted:Qty: 1 on 03/30/2023 by Charu De Santiago MD at [facility] Breast Right: Breast [employer] Per[employer] 05/18/2025 [id number] / [id number] / [id number] Description:Implanted Right Breast 7:00 area 7-8 cmfn Procedures Procedure Name Priority Date/Time Associated Diagnosis Comments PAP AND HPV, REFLEX TO HPV GENOTYPES Routine 04/23/2023 3:13 PM CDT Well woman exam DIAGNOSTIC MAMMOGRAM BILATERAL W ANIL Schedule Routine, Read Routine (OP Routine) 03/16/2023 11:09 AM CDT Abnormal mammogram of both breasts HEPATITIS C ANTIBODY Routine 06/25/2017 5:28 PM PAINT DEPARTMENT SUPERVISOR Encounter for supervision of other normal in first trimester from Last 3 Months or Most Recently Relevant to Health Maintenance Results * Pap and HPV, reflex to HPV Genotypes (04/23/2023 3:13 PM CDT) CLINICAL INFORMATION: [facility] Comment:None given LMP [facility] Comment:04/19/2023 Previous Pap [facility] Comment:None given Prev. Bx [facility] Comment:None given SOURCE: [employer] [facility] Comment:Cervix, Endocervix Pap, specimen adequacy [facility] Comment: Satisfactory for evaluation. Endocervical/transformation zone component present. HPV interp [facility] Comment: Cytology Results: Negative for intraepithelial lesion or malignancy. Adjunct Professor [facility] Comment: MMD, CT(ASCP) CT Screening Location: [place] [address] Comment [facility] Comment: EXPLANATORY NOTE: The Pap is a [...] Client Letter) showing TIS test codes, see [email or web address]/Resources, and navigate to Well-Woman>Physician Materials>TIS Client Letter. You can also call for test code assistance. Human papillomavirus DNA, High Risk E6/E7 Not Detected NOT DETECTED [employer] /Kristie [address] [facility] [place] Comment: Not Detected High Risk HPV types (16,18,31,33,35,39,45,51,52, 56,58,59,66,68) were not detected. Other HPV types which cause anogenital lesions may be present. The significance of the other types of HPV in malignant processes has not been established. Methodology: Real Time PCR Thin prep 04/23/2023 3:13 PM CDT 04/24/2023 5:11 AM CDT us Sariah Rubio MD LAB CYTOLOGY ORDERA BLES Final Result [facility] [address] [place] [address] [employer] [address] [place] [address] * (ABNORMAL) DIAGNOSTIC MAMMOGRAM BILATERAL W ANIL [...] * Hepatitis C antibody (06/25/2017 5:28 PM PAINT DEPARTMENT SUPERVISOR) Hep C Ab Negative Negative FELICE LYMAN ([place]) Comment:Testing performed by : [facility], [address] [place] [address], [address] Blood specimen (specimen) 06/25/2017 5:28 PM PAINT DEPARTMENT SUPERVISOR 06/26/2017 7:11 PM PAINT DEPARTMENT SUPERVISOR Narrative [facility] LYMAN ([place]) - 06/26/2017 9:17 PM PAINT DEPARTMENT SUPERVISOR Dhiraj Meng MD LAB MICROBIOLOGY - GENERAL ORDERABLES Final Result [facility]YMAN ([place]) 1 [facility] [place] [address] from Last 3 Months or Most Recently Relevant to Health Maintenance Insurance [facility] CLAIMS [facility] CLAIMS Advance Directives For more information, please contact: [phone] * Full Code (Latest Code Status on File) Date Activated Date Inactivated Comments 02/12/2022 7:52 AM 02/12/2022 2:00 PM * Full Code Date Activated Date Inactivated Comments 02/12/2022 7:52 AM 02/12/2022 7:52 AM * Full Code Date Activated Date Inactivated Comments 2018 8:57 PM 01/21/2018 4:54 PM Full CPR in c ase of cardiopulmonary arrest Care Teams Yeast Stacker Relationship Specialty Start Date End Date Martinez Ovalle MD [address] [place] [address] PCP - General 09/18/16
--- OUTSIDE RECORDS SUMMARY | 2024-10-27 00:48 | XMS_ITS | Clinical Summary ---
Author Organization [facility] Address [address] [place] [address] Care Team Providers Care Director Part Name Role Phone Martinez Ovalle MD Primary Care Provider [phone] Allergies No known active allergies Medications escitalopram [...] disorder Anxiety 07/07/2013 Overview (01/09/2022): Anxiety Immunizations Immunization Administration Dates Next Due Influenza (Generic) 03/21/2019,02/19/2014 [...] Date Last Done Comments Cervical Cancer Screening Pa p Smear (Age 30 to 64) Every 3 Years 1983 Annual Physical 1986 Hepatitis C 2001 Hepatitis B Vaccines (1 of 3 - 19+ 3-dose series) 2002 Cervical Cancer Screening Pa p with HPV Testing (Age 30 to 64) Every 5 Years 2013 Cervical Cancer Screening wi th HPV 2013 Mammogram Screening 2023 COVID-19 Vaccine (3 - 2023-2 5 season) 2024 09/16/2020, 08/19/2020 DTaP, Tdap and Td Vaccines ( 3 - Td or Tdap) 11/23/2027 11/22/2017, 03/17/2012 [...] 5 Years) and At-Risk Patients (6 to 49 Years) Aged Out No longer eligible b ased on patient's age to complete this topic RSV Immunizations Under 20 Months Aged Out No longer eligible b ased on patient's age to complete this topic Insurance Care Teams Director Part Relationship Specialty Start Date End Date Martinez Ovalle MD [address] [place] [address] PCP - General INTERNAL MEDICINE 12/07/17
--- OUTSIDE RECORDS SUMMARY | 2024-10-27 00:48 | XMS_ITS | Continuity of Care Document ---
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 It does not include entries that were removed or entered in error. Problem Status Onset Date Problem Type Date of Resolution Comments Source Encounter for AUDIOGRAM Active 03/16/20 24 Diagnosis 0004C-AF-C -42nd [facility]-Max well EXAM, FORMAL 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 HEALTH PROGRAM INCLUDING HEARING CONSERVATION PROGRAM, ESTABLISH BASELINE PRIOR TO 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 WORKPLACE EXPOSURE Active 03/16/20 24 Diagnosis 0004C-AF-C -42nd [facility] well Ear examination normal Active 03/16/20 24 Diagnosis 0004C-AF-C -42nd [facility] well Cough Active 03/16/20 24 Diagnosis 0004R OPFORCES AF-C-42nd [facility] WELL Allergic rhinitis Active 03/10/20 24 Diagnosis 0004R [facility] Cough Active 03/10/20 24 Diagnosis 0004R [facility]CES [facility]-C[facility] WELL visit for: administrative purpose Inactive 05/06/20 10 Condition [facility] 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, 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, 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 ASSESSMENT (PHA) Active Condition DoD anxiety Active Condition DoD Other Physical Therapy Active Condition DoD a fall Inactive Condition DoD CONTUSION WITH INTACT SKIN SURFACE - KNEE LEFT Active Condition DoD joint pain, localized in the knee Active Condition DoD COSTOCHONDRITIS (TIETZE'S SYNDROME) Inactive Condition DoD CERVICAL SQUAMOUS CELL INTRAEPITHELIAL NEOPLASIA, GRADE III Active Condition DoD CONSTIPATION Active Condition provide d patient with fleets enema and fleets PO phosphosoda oral to help facilitate BM - encouraged fluids- fiber- DoD CERVICALGIA Active Condition DoD ESOPHAGITIS CHRONIC REFLUX Active Condition [facility] Gynecologic Services Intrauterine Device (IUD) Checking Active Condition DoD Cerv Pap (+) High Grade Squamous Intraepithelial Lesion Active Condition DoD DEPRESSION Active Condition DoD Cervical Pap Smear Active Condition DoD PYELONEPHRITIS Active Condition DoD Patient Counseling: Inactive Condition DoD Gynecologic Services Intrauterine Device (IUD) Active Condition DoD Gynecologic Services Contraceptive Management Active Condition DoD SPONTANEOUS - COMPLETE Active Condition DoD abdominal pain in the left lower belly (LLQ) Inactive Condition DoD SPONTANEOUS Active Condition [facility] SPONTANEOUS - INCOMPLETE Inactive Condition I am worried that it is incomplete due to continued spotting.I will check a quantitative bHCG and refer to CLINICAL NURSING DIRECTOR clinic for evaluation for D&C. [facility] Test Positive Active Condition [facility] NECK SPRAIN Inactive Condition [facility] Medications Combined list of outpatient medications from Department of Defense and Veterans Affairs facilities.Medications provided include 1) outpatient medications from the last 15 months, and 2) patient-reported medications. Medication Details Route Status Patient Instructions Prescription Expires Prescription Number Last Dispense Date Ordering Provider Order Date Order Qty Source CETIRIZINE HCL (cetirizine HCl), 10 MG, TABLET, ORAL, 'S LAB, 500 ea. BOTTLE Active [id number] 4 2023 30 Pharmac y Data Transac tion Service Facilit y CLOBETASOL PROPIONATE (clobetasol propionate) , 0.05 %, CREAM (G), TOPICAL, ENCUBE ETHICALS, 45 g TUBE Active [id number] 4 2023 45 Pharmac y Data Transac tion Service Facilit y GEMTESA (vibegron), 75 MG, TABLET, ORAL, UROVANT-SUM ITOM, 30 ea. BOTTLE Active [id number] 4 2023 90 Pharmac y Data Transac tion Service Facilit y GEMTESA (vibegron), 75 MG, TABLET, ORAL, UROVANT-SUM ITOM, 30 ea. BOTTLE Cancele d [id number] : 2023 0 Pharmac y Data Transac tion Service Facilit y PHENTERMINE HCL (PHENTERMIN E HCL), 15MG, CAPSULE, ORAL, [employer] 100 ea. BOTTLE Active [id number] 4 2023 30 Pharmac y Data Transac tion Service Facilit y PHENTERMINE HCL (PHENTERMIN E HCL), 30MG, CAPSULE, ORAL, [employer] 100 ea. BOTTLE Cancele d [id number] : 2023 0 Pharmac y Data Transac tion Service Facilit y Allergies, Adverse Reactions, Alerts Combined list of allergies from Department of Defense and Veterans Affairs facilities. It does not include entries that were removed or entered in error. Substance Category Reaction Severity Reaction type Status Date Reported Comments Source No Known Allergies Drug allergy (disorder) active 11/09/2007 [facility] Immunizations Combined list of available immunizations from the Department of Defense and Veterans Affairs facilities. 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 Comments Source Influenza, injectable, quadrivalent, preservative free 0 2021 [id number] SmithKline (SKB) complet ed Influenza , injectabl e, quadrival ent, preservat elissa free DoD tetanus and diphtheria toxoids, adsorbed, preservative free, for adult use (2 Lf of tetanus toxoid and 2 Lf of diphtheria toxoid) 2 2021 [id number] Sanofi Pasteur (PMC) complet ed tetanus and diphtheri a toxoids, adsorbed, preservat elissa free, for adult use (2 Lf of tetanus toxoid and 2 Lf of diphtheri a toxoid) DoD influenza, injectable, quadrivalent 2020 [id number] 158 GlaxoSmithKli ne complet ed influenza , injectabl e, quadrival ent 05/24/21 Given Ambulat ory Pharmac y influenza, injectable, quadrivalent, contains preservative 1 2020 [id number] 158 SmithKline (SKB) complet ed influenza , injectabl e, quadrival ent, contains preservat elissa DoD COVID Vaccine Moderna 2020 TRS 207 complet ed COVID Vaccine Moderna 09/15/20 Given Ambulat ory Pharmac y SARS-COV-2 (COVID-19) vaccine, mRNA, spike protein, LNP, preservative free, 100 mcg or 50 mcg dose 0 2020 Unknown, Provider TRS 207 Moderna [employer] (MOD) complet ed SARS-COV- 2 (COVID-19 ) vaccine, mRNA, spike protein, LNP, preservat elissa free, 100 mcg or 50 mcg dose DoD COVID-19, mRNA, LNP-S, PF, 100 mcg or 50 mcg dose 2020 MARQUEZ, () Not Given COVID-19, mRNA, LNP-S, PF, 100 mcg or 50 mcg dose DoD COVID Vaccine Moderna 2020 TRS 207 complet ed COVID Vaccine Moderna 08/19/20 Given Ambulat ory Pharmac y SARS-COV-2 (COVID-19) vaccine, mRNA, spike protein, LNP, preservative free, 100 mcg or 50 mcg dose 0 2020 Unknown, Provider TRS 207 [employer] (MOD) complet ed SARS-COV- 2 (COVID-19 ) vaccine, mRNA, spike protein, LNP, preservat elissa free, 100 mcg or 50 mcg dose DoD COVID-19, mRNA, LNP-S, PF, 100 mcg or 50 mcg dose 2020 MARQUEZ [employer] (MOD) Not Given COVID-19, mRNA, LNP-S, PF, 100 mcg or 50 mcg dose DoD influenza, injectable, quadrivalent- pf 2019 TRANSCR IBED 150 complet ed influenza , injectabl e, quadrival ent-pf 04/26/20 Given Ambulat ory Pharmac y Influenza, injectable, quadrivalent, preservative free 1 2019 150 Transcribed (TRS) complet ed Influenza , injectabl e, quadrival ent, preservat elissa free DoD influenza, injectable, quadrivalent, preservative free 2019 ALUL, () Not Given influenza , injectabl e, quadrival ent, preservat elissa free DoD influenza, injectable, quadrivalent 2018 [id number] 158 Seqirus complet ed influenza , injectabl e, quadrival ent 03/25/19 Given Ambulat ory Pharmac y influenza, injectable, quadrivalent, contains preservative 16 2018 [id number] 20 158 Seqirus (SEQ) complet ed influenza , injectabl e, quadrival ent, contains preservat elissa DoD influenza, injectable, quadrivalent- pf 2017 [id number] 150 Seqirus complet ed influenza , injectabl e, quadrival ent-pf 04/24/18 Given Ambulat ory Pharmac y Influenza, injectable, quadrivalent, preservative free 15 2017 [id number] 150 Seqirus (SEQ) comple t ed Influenza , injectabl e, quadrival ent, preservat elissa free DoD influenza, seasonal, injectable 2016 TRANSCR IBED 141 sanofi pasteur complet ed influenza , seasonal, injectabl e 03/13/17 Given Ambulat ory Pharmac y influenza, injectable, quadrivalent 2016 JOHN BOWERS () Not Given influenza , injectabl e, quadrival ent DoD Influenza, seasonal, injectable 1 2016 141 Sanofi Pasteur ([facility]) complet ed Influenza , seasonal, injectabl e DoD influenza virus vaccine, unspecified 2015 TRANSCR IBED 88 complet ed influenza virus vaccine, unspecifi ed 03/17/16 Given Ambulat ory Pharmac y influenza virus vaccine, unspecified formulation 1 2015 88 Transcribed (TRS) complet ed influenza virus vaccine, unspecifi ed formulati on DoD influenza, seasonal, injectable-pf 2014 [id number] 140 CSL Behring complet ed influenza , seasonal, injectabl e-pf 03/23/15 Given Ambulat ory Pharmac y Influenza, seasonal, injectable, preservative free 1 2014 [id number] 140 Fara, Inc. (CSL) complet ed Influenza , seasonal, injectabl e, preservat elissa free DoD measles, mumps and rubella virus vaccine 0 2014 03 () Not Given measles, mumps and rubella virus vaccine DoD varicella virus vaccine 0 2014 21 () Not Given varicella virus vaccine DoD influenza, seasonal, injectable 2013 [id number] 141 Novartis Pharmaceutica ls complet ed influenza , seasonal, injectabl e 03/24/14 Given Ambulat ory Pharmac y Influenza, seasonal, injectable 1 2013 [id number] 141 Novartis Pharmaceutica l Dominique. (NOV) complet ed Influenza , seasonal, injectabl e DoD influenza, live, intranasal,qu adrivalent 2012 [id number] 149 Provus Labune Inc comple t ed influenza , live, intranasa l,quadriv alent 04/22/13 Given Ambulat ory Pharmac y influenza, live, intranasal, quadrivalent 11 2012 [id number] 149 Splashtop, Inc, Inc. (MED) complet ed influenza , live, intranasa l, quadrival ent DoD influenza, seasonal, injectable-pf 2011 [id number] 140 sanofi pasteur complet ed influenza , seasonal, injectabl e-pf 05/21/12 Given Ambulat ory Pharmac y Influenza, seasonal, injectable, preservative free 1 2011 [id number] 140 Sanofi Pasteur (PMC) complet ed Influenza , seasonal, injectabl e, preservat elissa free DoD DTaP 2011 20 sanofi pasteur complet ed DTaP 03/17/12 Given Ambulat ory Pharmac y diphtheria, tetanus toxoids and acellular pertu is vaccine 0 2011 20 Sanofi Pasteur (PMC) complet ed diphtheri a, tetanus toxoids and acellular pertussis vaccine DoD tetanus, diphtheria, acellular pertu is 2011 TRANSCR IBED 115 complet ed tetanus, diphtheri a, acellular pertussis 01/03/12 Given Ambulat ory Pharmac y tetanus toxoid, reduced diphtheria toxoid, and acellular pertu is vaccine, adsorbed 1 2011 115 Transcribed (TRS) complet ed tetanus toxoid, reduced diphtheri a toxoid, and acellular pertussis vaccine, adsorbed DoD influenza, seasonal, injectable 2010 [id number] 141 CSL Behring complet ed influenza , seasonal, injectabl e 03/21/11 Given Ambulat ory Pharmac y Influenza, seasonal, injectable 9 2010 [id number] 141 CSL Biotherapies, Inc. (L) complet ed Influenza , seasonal, injectabl e DoD influenza virus vaccine,split 2009 [id number] 15 CSL Behring complet ed influenza virus vaccine,s plit 04/26/10 Given Ambulat ory Pharmac y influenza virus vaccine, split virus (incl. purified surface antigen)-reti red CODE 1 2009 [id number] 15 CSL Biotherapies, Inc. (CSL) complet ed influenza virus vaccine, split virus (incl. purified surface antigen)- retired CODE DoD Novel influenza-H1N 1-09, injectable 2009 [id number] 127 Novartis Pharmaceutica complet ed Novel influenza -O9N1-68, injectabl e 07/27/09 Given Ambulat ory Pharmac y Novel influenza-H1N 1-09, injectable 1 2009 [id number] 127 Novartis Pharmaceutica l Dominique. (NOV) complet ed Novel influenza -[id number], injectabl e DoD influenza virus vaccine,split 2008 [id number] 15 sanofi pasteur complet ed influenza virus vaccine,s plit 04/27/09 Given Ambulat ory Pharmac y influenza virus vaccine, split virus (incl. purified surface antigen)-reti red CODE 1 2008 [id number] 15 Sanofi Pasteur ([facility]) complet ed influenza virus vaccine, split virus (incl. purified surface antigen)- retired CODE DoD influenza virus vaccine, live 2007 [id number] 111 PlayMotion Inc comple t ed influenza virus vaccine, live 06/27/07 Given Ambulat ory Pharmac y influenza virus vaccine, live, attenuated, for intranasal use 1 2007 [id number] 111 Splashtop, Inc, Inc. (MED) complet ed influenza virus vaccine, live, attenuate d, for intranasa l use DoD influenza virus vaccine,split 2005 [id number] 15 sanofi pasteur complet ed influenza virus vaccine,s plit 05/29/06 Given Ambulat ory Pharmac y influenza virus vaccine, split virus (incl. purified surface antigen)-reti red CODE 1 2005 [id number] 15 Sanofi Pasteur ([facility]) complet ed influenza virus vaccine, split virus (incl. purified surface antigen)- retired CODE [facility] tuberculin purified protein derivative 2005 [id number] 96 [facility] complet ed tuberculi n purified protein derivativ e 12/30/05 Given Ambulat ory Pharmac y influenza virus vaccine, whole virus 2004 16 complet ed influenza virus vaccine, whole virus 04/02/05 Given Ambulat ory Pharmac y influenza virus vaccine, whole virus 1 2004 16 () complet ed influenza virus vaccine, whole virus DoD anthrax vaccine 2004 [id number] 24 Emergent Biosolutions complet ed anthrax vaccine 02/03/05 Given Ambulat ory Pharmac y typhoid vaccine, live, oral 2004 [id number] 25 [employer] complet ed typhoid vaccine, live, oral 02/03/05 Given Ambulat ory Pharmac y vaccinia (smallpox) vaccine, diluted 2004 [id number] 105 [employer] complet ed vaccinia (smallpox ) vaccine, diluted 02/03/05 Given Ambulat ory Pharmac y anthrax vaccine 1 2004 [id number] [facility] complet ed anthrax vaccine DoD typhoid vaccine, live, oral 1 2004 [id number] 25 PurposeMatch (formerly SPARXlife) (BPC) complet ed typhoid vaccine, live, oral DoD vaccinia (smallpox) vaccine, diluted 1 2004 [id number] 105 Jammie (CHING) complet ed vaccinia (smallpox ) vaccine, diluted DoD influenza virus vaccine,split 2004 [id number] 15 sanofi pasteur complet ed influenza virus vaccine,s plit 08/20/04 Given Ambulat ory Pharmac y influenza virus vaccine, split virus (incl. purified surface antigen)-reti red CODE 0 2004 [id number] 15 Sanofi Pasteur (PMC) complet ed influenza virus vaccine, split virus (incl. purified surface antigen)- retired CODE DoD hepatitis A-hepatitis B vaccine 2004 [id number] 104 GlaxoSmithKli ne complet ed hepatitis A-hepatit is B vaccine 07/29/04 Given Ambulat ory Pharmac y influenza virus vaccine,split 2004 [id number] 15 sanofi pasteur complet ed influenza virus vaccine,s plit 07/29/04 Given Ambulat ory Pharmac y influenza virus vaccine, split virus (incl. purified surface antigen)-reti red CODE 0 2004 [id number] 15 Sanofi Pasteur ([facility]) complet ed influenza virus vaccine, split virus (incl. purified surface antigen)- retired CODE DoD hepatitis A and hepatitis B vaccine 3 2004 [id number] 104 SmithKline (SKB) complet ed hepatitis A and hepatitis B vaccine DoD hepatitis A-hepatitis B vaccine 2003 [id number] 6 104 GlaxoSmithKli ne complet ed hepatitis A-hepatit is B vaccine 12/08/03 Given Ambulat ory Pharmac y hepatitis A and hepatitis B vaccine 2 2003 [id number] 6 104 SmithKline (SKB) complet ed hepatitis A and hepatitis B vaccine DoD hepatitis A-hepatitis B vaccine 2003 [id number] 6 104 GlaxoSmithKli ne complet ed hepatitis A-hepatit is B vaccine 11/07/03 Given Ambulat ory Pharmac y measles, mumps and rubella virus vaccine 0 2003 03 () Not Given measles, mumps and rubella virus vaccine DoD varicella virus vaccine 1 2003 21 () Not Given varicella virus vaccine DoD hepatitis A and hepatitis B vaccine 1 2003 [id number] [address] [place], [place] [address] (SKB) complet ed hepatitis A and hepatitis B vaccine DoD tetanus-dipht h toxoids (Td) adult/adol 2003 [id number] 09 sanofi pasteur complet ed tetanus-d iphth toxoids (Td) adult/ado l 11/02/03 Given Ambulat ory Pharmac y tuberculin purified protein derivative 2003 [id number] 96 sanofi pasteur complet ed tuberculi n purified protein derivativ e 11/02/03 Given Ambulat ory Pharmac y influenza virus vaccine, whole virus 2003 [id number] 16 Novartis Pharmaceutica ls complet ed influenza virus vaccine, whole virus 11/02/03 Given Ambulat ory Pharmac y poliovirus vaccine, inactivated 2003 [id number] 10 sanofi pasteur complet ed polioviru s vaccine, inactivat ed 11/02/03 Given Ambulat ory Pharmac y meningococcal polysaccharid e (MPSV4) 2003 [id number] 32 sanofi pasteur complet ed meningoco ccal polysacch aride (MPSV4) 11/02/03 Given Ambulat ory Pharmac y tetanus and diphtheria toxoids, adsorbed, preservative free, for adult use (2 Lf of tetanus toxoid and 2 Lf of diphtheria toxoid) 0 2003 [id number] 09 Sanofi Pasteur (PMC) complet ed tetanus and diphtheri a toxoids, adsorbed, preservat elissa free, for adult use (2 Lf of tetanus toxoid and 2 Lf of diphtheri a toxoid) DoD poliovirus vaccine, inactivated 0 2003 [id number] 10 Sanofi Pasteur (PMC) complet ed polioviru s vaccine, inactivat ed DoD influenza virus vaccine, whole virus 0 2003 [id number] 16 PowderJect Pharmaceutica ls (PWJ) complet ed influenza virus vaccine, whole virus DoD meningococcal polysaccharid e vaccine (MPSV4) 0 2003 [id number] 32 Sanofi Pasteur (PMC) complet ed meningoco ccal polysacch aride vaccine (MPSV4) DoD Results Combined list of recent chemistry, hematology and other laboratory results from Department of Defense and Veterans Affairs, ranging from 15 months to all on record, depending upon the facility. Order Name Results Value Reference Range Date Interpretation Specimen Comments Source Infectiou s Disease Rubella IgG Antibody Positive [...] due to low prevalence of rubella antibody negative/research microbiologist ss-reacting condition positive patients. The performance characterist ics of this assay have not been evaluated for use in pediatric populations. Methodology: Chemilumines cent immunoassay (CLIA) 5600A-U [facility] Infectiou s Disease Rubeola IgG Antibody [...] decision must also be taken on a [id number] basis. Specimens from patients receiving preparations of [...] [facility] EPILAB Infectiou s Disease Mumps IgG Antibody Negative [...] decision must also be taken on a zold-[id number]-sqbp basis. Specimens from patients receiving preparations of [...] populations. Methodology: Chemilumines cent immunoassay (CLIA) 5600A-U [employer] EPILAB Chemistry Beta hCG Qnt <1 m[iU]/mL 0 [...] INTERNATIONA L STD. 0004A-A F-C-42n d MEDGRP- Megan Vital Signs Combined list of inpatient and outpatient Vital Signs from Department of Defense and Veterans Affairs, ranging from 12 months to all on record, depending upon the facility. Vital Sign Value Date Comments Source Temperature Oral 36.2 Jada 03/16/2024 11:20:00 0004R OPFORCES AF-C-42nd [facility]-MEGAN Respiratory Rate 14 br/min 03/16/2024 11:20:00 0004R [facility]CES [facility]-C-[facility] Peripheral Pulse Rate 83 bpm 03/16/2024 11:20:00 0004R OPSY[place]IES AF-C-42nd [facility] Blood Pressure Manual Automatic 03/16/2024 11:20:00 0004R OPFORCES AF-C-[facility]nd [facility] Mean Arterial Pressure, Calc 93 mm[Hg] 03/16/2024 11:20:00 0004R OPFORCES AF-C-[facility]nd [facility] BP Site Left arm 03/16/2024 11:20:00 0004R OPFORCES AF-C-42nd [facility] Systolic Blood Pressure 122 mm[Hg] 03/16/20 11:20:00 0004R [facility]FORCES [facility]-C-[facility]nd [facility] Diastolic Blood Pressure 79 mm[Hg] 11:20:00 0004R [facility]FORCES [facility]-C-[facility]nd [facility] Respiratory Rate 18 br/min 03/10/2024 [...] included; 2) Encounters from the Department of Defense facilities going backup to 280 months. Location Location Details Encounter Type Encounter Number Reason For Visit Attending Provider ADM Date DC Date Status [place] [facility] [place] [id number] pain around neck HUY SHIPLEY 07/13 Released w/o Limitations [facility]) [facility] Emergency Room) OUTPATIENT [id number] Stiff neck CASSANDRA MONTGOMERY Landen 07/23 Released w/o Limitations [facility] Emergen cy Room) [facility] Family [facility] Cl Red) OUTPATIENT [id number] swollen lymphno ids on neck ELAINENEFTALIELIAZAR A 07/31 Released with Work/Duty Limitations [facility] Family [facility] Cl Red) [facility] Family [facility] Cl Red) OUTPATIENT [id number] Positiv e HCG ELIZABETH CHILD 08/25 Released w/o Limitations [facility] Family [facility] Cl Red) [facility] Family [facility] Cl Red) OUTPATIENT [id number] ref ELIZABETH CHILD 10/16 Released w/o Limitations [facility] Family Health Cl Red) [facility] Obstetric ) TELE CONSULT [id number] miscarr ied, poss D&C DEANA MANZANARES 10/16 [facility] Obstetr ic) [facility] Emergency Room) OUTPATIENT [id number] LLQ DANIEL Lane 10/16 Released w/o Limitations [facility] Emergen cy Room) [facility] Obstetric ) OUTPATIENT [id number] miscarr iage f/u DEANA MANZANARES 10/30 Released w/o Limitations [facility] Obstetr ic) [facility] Women's Health) TELE CONSULT [id number] IUD - KARMEN Reeves 11/25 [facility] Women's Health) [facility] Women's Health) OUTPATIENT [id number] iud DEANA Banegas 11/26 Released w/o Limitations [facility] Women's Health) [facility] Family Health Cl Red) TELE CONSULT [id number] constip LISBET Caputo 12/01 [facility] Family Health Cl Red) [facility]) OUTPATIENT [id number] MICAH Hope 12/02 Released w/o Limitations [facility] Emergen [facility]) [facility] Family Health Cl Red) OUTPATIENT [id number] well woman RUSLAN VILLA T 12/11 Released w/o Limitations [facility]) [facility] Women's Health) OUTPATIENT [id number] hsil on recent pap, additio nal consult pending DEANA MANZANARES 12/29 Released w/o Limitations [facility] Women's Health) [facility] Family Health Cl Red) OUTPATIENT [id number] heartbu rn med RUSLAN VILLA 01/01 Released w/o Limitations [facility]) [facility]) OUTPATIENT [id number] CONSTAP ELIAZAR ATKINSON 01/20 Released w/o Limitations [facility] Family [facility] Cl Red) [facility] Women's Health) OUTPATIENT [id number] DEANA SAMAYOA 01/28 Sick at Home/Quarter s [facility] Women's Health) [employer] Anselmo ZUNIGA ([facility]) OUTPATIENT [id number] chest congest ion/bur BANG Krishnamurthy 05/08 Released w/o Limitations [employer]selmo ZUNIGA ([facility]) [employer] Anselmo ZUNIGA ([facility] Practice Non-GME FHI1) OUTPATIENT [id number] left leg pain JORGE GUZMAN 07/29 Released with Work/Duty Limitations [employer] Anselmo ZUNIGA ([facility]F amily Practic e Non-GME FHI1) [employer] Anselmo ZUNIGA ([facility] Practice Non-GME FHI2) OUTPATIENT [id number] [phone] LOD torn meniscu s left knee JUN LISBET Schuster 10/06 Released w/o Limitations [employer] ([facility]F amily Practic e Non-GME FHI2) [employer] ([facility]Phy sical Therapy) OUTPATIENT [id number] joint pain, localiz ed in the knee ANILA VILLAGRAN 11/08 Released w/o Limitations [employer] ([facility]P hysical Therapy ) [employer] ([facility])(Phy sical Therapy) OUTPATIENT [id number] VEE JONES 11/14 Released w/o Limitations [employer] ([facility]P hysical Therapy ) [employer] ([facility])(Phy sical Therapy) OUTPATIENT [id number] ALEYDA WILSON 11/16 Released w/o Limitations [employer] ([facility]P hysical Therapy ) [employer] ([facility]Phy sical Therapy) OUTPATIENT [id number] MERE ALBERTS 11/21 Released w/o Limitations [employer] ([facility]P hysical Therapy ) [employer] ([facility])(Phy sical Therapy) OUTPATIENT [id number] GENE KRAFT 11/23 Released w/o Limitations [employer] ([facility]P hysical Therapy ) [employer] ([facility])(Phy sical Therapy) OUTPATIENT [id number] MERE ALBERTS 11/27 Released w/o Limitations [employer] ([facility]P hysical Therapy ) [employer] ([facility])(Phy sical Therapy) OUTPATIENT [id number] ALEYDA WILSON 11/29 Released w/o Limitations [employer] ([facility]P hysical Therapy ) [employer] ([facility])(Phy sical Therapy) OUTPATIENT [id number] ANILA VILLAGRAN 12/07 Released w/o Limitations [employer] ([facility])(P hysical Therapy ) [place] [address](AFN G 183 Med Sq-[facility]) OUTPATIENT [id number] Notes Entered by: DARLIN MOFFETT 24 Sep 2018 0850 ------- ------- ------- ------- -- 5 Month Waiver renewal marie AMANDA LOUISE 09/24 Released w/o Limitations [facility] [place] [address](A FNG 183 Med Sq-[facility]) [place] [address](AFN G 183 Med Sq-FM) OUTPATIENT [id number] Notes Entered by: DRALIN MOFFETT 01 Dec 2018 0944 ------- ------- ------- ------- -- ALC-C Waiver Renewal ELIANA GODINEZ 12/01 Released with Work/Duty Limitations [facility] [place] [address](A FNG 183 Med Sq-FM) [place] [address](AFN G 183 Med Sq-FM) OUTPATIENT [id number] Notes Entered by: NÉSTOR GÓMEZ 28 Mar 2020 1330 ------- ------- ------- ------- -- PHA NÉSTOR GÓMEZ 03/28 Released w/o Limitations [facility] [place] [address](A FNG 183 Med Sq-FM) [place] [address](AFN G 183 Med Sq-FM) OUTPATIENT [id number] Notes Entered by: Briana GODINEZ 27 Apr 2020 0857 ------- ------- ------- ------- -- 1 year 469 review ELIANA GODINEZ 04/27 Released w/o Limitations [facility] [place] [address](A FNG 183 Med Sq-FM) [place] [address](AFN G 183 Med Sq-FM) OUTPATIENT [id number] 5 Notes Entered by: Briana GODINEZ 25 Apr 2021 1452 ------- ------- ------- ------- -- 1 year ELIANA Etienne 04/25 Released w/o Limitations [facility] [place] [address](A FNG 183 Med Sq-FM) [place] [address](AFN G 183 Med Sq-FM) OUTPATIENT [id number] Notes Entered by: Briana GODINEZ 26 Jun 2021 1259 ------- ------- ------- ------- -- [facility] ELIANA GODINEZ 06/26 Released w/o Limitations [facility] [place] [address](A FNG 183 Med Sq-FM) [place] [address](AFN G 183 Med Sq-FM) OUTPATIENT [id number] 7 Notes Entered by: Briana GODINEZ 24 Jan 2022 1338 ------- ------- ------- ------- -- 3 month ELIANA JAY 01/24 Released w/o Limitations [facility] [place] [address](A FNG 183 Med Sq-FM) [place] [address](AFN G 183 Med Sq-FM) OUTPATIENT [id number] Notes Entered by: Briana GODINEZ 21 Mar 2022 1057 ------- ------- ------- ------- -- ELIANA JAY 03/21 Released w/o Limitations [facility] [place] [address](A FNG 183 Med Sq-FM) [place] [address](AFN G 183 Med Sq-FM) OUTPATIENT [id number] Notes Entered by: NÉSTOR GÓMEZ 30 Jun 2022 1257 ------- ------- ------- ------- -- PHA REV NÉSTOR GÓMEZ 06/30 Released w/o Limitations [facility] [place] [address](A FNG 183 Med Sq-FM) 0004A-AF- C-[facility]nd [facility] Out[facility] [id number] DANELLE VELASQUEZ S 02/15 Discharge Disposition: Home or Self Care 0004A-A F-C-42n d [facility] 0004R [facility] AF-C-42nd [facility] [id number] Allergi c rhiniti s, unspeci fied,Co ugh, unspeci fied BANG HENRY 03/10 Discharge Disposition: Home or Self Care 0004R OPFORCE S AF-C-42 nd [facility] 0004R [facility] AF-C-[facility]nd [facility] [id number] Cough, unspeci fied EDGIGIJOIHSAN SON 03/16 Discharge Disposition: Home or Self Care 0004R OPFORCE S AF-C-42 nd [facility] 0004C-AF- C-[facility]nd [facility] [id number] Encount er for other specifi ed special examina tions,E XAM, FORMAL OCCUPAT IONAL HEALTH PROGRAM INCLUDI NG HEARING CONSERV ATION PROGRAM , ESTABLI SH BASELIN E 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 Procedure Procedure Type Code Date Perfomer Comments Sourc e Psychiat Therapy Indiv Appr 75-80 Min W/ Med Eval Managemt Psychiat Therapy Indiv Appr 75-80 Min W/ Med Eval Managemt 19892 010 KEITH SHINE [facility] Taping Knee Taping Knee 39600 008 ANILA VILLAGRAN [facility] Physical Medicine Physical Therapy Re-Evaluation Physical Medicine Physical Therapy Re-Evaluation 91471 008 ANILA VILLAGRAN [facility] Modalities Ultrasound Modalities Ultrasound 57232 008 ALEYDA WILSON [facility] Modalities Ultrasound Modalities Ultrasound 82394 008 MERE ALBERTS [facility] Modalities Ultrasound Modalities Ultrasound 48353 008 GENE KRAFT [facility] Modalities Ultrasound Modalities Ultrasound 20009 008 MERE ALBERTS [facility] Modalities Ultrasound Modalities Ultrasound 32955 008 ALEYDA WILSON [facility] Modalities Ultrasound Modalities Ultrasound 83577 008 VEE JONES [facility] Physical Therapy: ___ Se ion Segments, 15 Minutes Each Physical Therapy: ___ Session Segments, 15 Minutes Each 13976 008 ANILA VILLAGRAN [facility] Physical Medicine Physical Therapy Evaluation Physical Medicine Physical Therapy Evaluation 54269 008 ANILA VILLAGRAN [facility] ECG 12-Lead ECG 12-Lead 66464 006 HUY CORTES [facility] Cervical Conization Loop Electrode Excision Cervical Conization Loop Electrode Excision 64588 006 DEANA MANZANARES [facility] Colposcopy Cervix With Biopsy(s) Colposcopy Cervix With Biopsy(s) 40804 006 DEANA MANZANARES Bacterial Culture Presumptive Bacterial Culture Presumptive 75556 006 RUSLAN VILLA Screening papanicolaou smear; obtaining, preparing and conveyance of cervical or vaginal smear to laboratory 006 RUSLAN VILLA Parenteral Fluids IV Infusion For Hydration 006 ZA PRASAD 1155- 1L NS R AC 20g 1 attempt bolus, labs drawn- dgj DoD Injection, ceftriaxone sodium, per 250 mg 006 MARYCHUY QUINTERO 1220hrs IV Normal Saline infusing at bolus rate, decreased rate to TKO. Ceftriaxone 1 gram started IV piggyback. 1300hrs Infusion of Ceftriaxone complete. No adverse reaction noted to Ceftriaxone. IV normal saline infusion rate increased to bolus. [facility] IV Infusion For Hydration Each Additional Hour LAURA PETERSON Briana 2nd bag of NS started @1310 [facility] Gynecologic Services Intrauterine Device (IUD) Insertion Gynec[facility] Services Intrauterine Device (IUD) Insertion 96040 DEANA MANZANARES [facility] Levonorgestrel-re leasing intrauterine contraceptive system, 52 mg VAN MANZANARESIN B [facility] Trans-Vaginal Ultrasound Trans-Vaginal Ultrasound 51275 DEANA MANZANARES B [facility] No data available for this section Ambulato ry Pharmacy Social History Combined list of available smoking, tobacco, and other social history from Department of Defense and Veterans Affairs facilities. Social History Type Response Date Comment Sour e Sex Representation Female (finding) 09/26/2021 Unknown Organization This section is an empty social history section. [facility] Sexual Orientation Ambula tory Pharmacy Gender identity Ambulator y Pharmacy Assessment and Plan Combined list of future care activities from Department of Defense and Veterans Affairs facilities (e.g., assessment and [...] from:Title: Office Clinic Note/Acute bronchitis Author: ALEJANDRO SHINE IDMT Date: 03/16/24 1. C ough 39yo F with persistent cough [id number] progressing to acute bronchitis based on symptoms [...] discussed with and approved by Shola Butt [phone] Ordered: methylPREDNISolone(methylPREDN ISolone Dose Pack 4 mg oral tablet), See Instructions, Take as directed on package labeling for 6 days, # 21 tab(s), 0 total refill(s), Acute, Other Reason (Rx) [External Rx] SSgt Alejandro Shine, MICHELA MAS, 22d TRSS, OTS, Megan ZUNIGA, [place] [...] OTS Stock, Other Reason (Rx) [External Rx] 10/27/2024 1049K-OS-R-42nd [facility] Assessment and Plan Extracted from:Title : PHAQ REV Author: NÉSTOR GÓMEZ Date: 08/30/24 PHAQ Reviewed. 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 C ough 39yo F with persistent cough [id number] progressing to acute bronchitis based on symptoms [...] discussed with and approved by Shola Butt [phone] Ordered: methylPREDNISolone(methylPREDN ISolone Dose Pack 4 mg oral tablet), See Instructions, Take as directed on package labeling for 6 days, # 21 tab(s), 0 total refill(s), Acute, Other Reason (Rx) [External Rx] SSgt MICHELA Devine MAS, 22d TRSS, Megan [place], [place] Extracted from:Title: Office Clinic Note Author: [...] OTS Stock, Other Reason (Rx) [External Rx] 10/27/2024 0004R OPFORCES AF-C-42nd [facility] Functional Status Combined list of recent functional and cognitive assessments recorded at Department of Defense and Veterans Affairs (VA).VA Functional [place] Measurement (FIM) Scale: 1 = Total Assistance (Subject = 0% +), 2 = Maximal Assistance (Subject = 25% +), 3 = Moderate Assistance (Subject = 50% +), 4 = Minimal Assistance (Subject = 75% +), 5 = Supervision, 6 = Modified Ch[place]ach (Device), 7 = Complete [place]ach (Timely, Safely). Assessment Date/Time Source Assessment Type Assessment Skill Assessment Score Assessment Details No data available for this section
--- OUTSIDE RECORDS SUMMARY | 2024-10-27 00:48 | XMS_ITS | Encounter Summary ---
Author Organization [facility] Address [address] [place] [address] Phone Care Team Providers Care Spring Upholsterer Name Role Phone Martinez Ovalle MD Primary Care Provider [phone] Reason for Visit * Reason Comments Medication Refill Encounter Details Date Type Department Care Team (Late st Contact Info) Description 09/15/2023 Refill [facility] [address] [place] [address] Mars Yung MD [address] [address] Medication Refill Social History Tobacco Use Types [...] on filedocumented in this encounter Care Teams Spring Upholsterer Relationship Specialty Start Date End Date Martinez Ovalle MD [address] [place] [address] PCP - General Internal Medicine 07/11/15 documented as of this encounter
--- OUTSIDE RECORDS SUMMARY | 2024-10-27 00:49 | XMS_ITS | Clinical Summary ---
Author Organization [facility] Address [address] [place] [address] Care Team Providers Care Assistant District Attorney Name Role Phone Unavailable Primary Care Provider Unavailabl e Source Comments [facility] [employer],non-owned Affiliates and Associated Physician Practices is amultiple site organization consisting of ambulatory clinics and hospital sitesin [place], [place], [place] and [place]. This disclosure is being madepursuant to the Care Everywhere program and may not contain all information available regarding this patient. Last updated 18.[facility] [employer] Social History Tobacco Use Types Packs/Day Years Used Date Smoking Tobacco: Never Assessed Comments Unknown Sex and Gender Information Value Date Recorded Sex Assigned at Not on file Legal Sex Female 3:48 PM CDT Gender Identity Not on file Sexual Orientation Not on file Plan of Treatment Health Maintenance Due Date Last Done Comments LIPID TESTING 1983 MAMMOGRAM 1983 HIV SCREENING 1998 HEPATITIS C SCREENING 01/13/2001 DTAP/TDAP/TD VACCINES (1 - Tdap) 2002 HEPATITIS B VACCINE (1 of 3 - 19+ 3-dose series) 2002 COVID-19 VACCINE ( - 2023-2 5 season) 2024 DEPRESSION SCREENING 06/21/2024 INFLUENZA VACCINE (Season Ended) 2025 ZOSTER VACCINE (1 of 2) 2033 HIB [...]
--- OUTSIDE RECORDS SUMMARY | 2024-10-27 00:49 | XMS_ITS | Encounter Summary ---
Author Organization [facility] Address [address] [address] Care Team Providers Care Machine Plaster Mixer Name Role Phone Unavailable Primary Care Provider Unavailabl e Encounter Details Date Type Department Care Team (Late st Contact Info) Description 08/02/2020 Lab Requisition [facility] [address] [place] [id number] Lexis Peterson MD [address] DEPT [place] [address] Social History Tobacco Use Types Packs/Day Years [...] Comments DERMATOPATHOLOGY Routine 08/01/2020 12:0 0 AM SENIOR ACCOUNT DIRECTOR documented in this encounter Results * DERMATOPATHOLOGY (08/01/2020 12:00 AM SENIOR ACCOUNT DIRECTOR) Case Report Dermatopathology Report Case: [id number] Authorizing Provider: Lexis Peterson MD Collected: 08/01/2020 12:00 AM Ordering Location: [facility] Received: 08/02/2020 10:06 AM Pathologist: Frank Putnam MD Specimen: Skin, right knee 12:19 PM SENIOR ACCOUNT DIRECTOR DERMATOPATHOLOGY LABORATORY Final Diagnosis Specimen A. SKIN, right knee: SPONGIOTIC DERMATITIS WITH EOSINOPHILS (L30.8) (see microscopic description and comment) 12:19 PM SENIOR ACCOUNT DIRECTOR DERMATOPATHOLOGY LABORATORY Clinical History R/O PSO, AD, LSC 12:19 PM [facility] DERMATOPATHOLOGY [facility]ORATORY Gross Description Specimen A: Received is one formalin filled container labeled with the patient's name and designated right knee. The specimen consists of a punch biopsy measuring 3x3x5 mm. Jar 0. 12:19 PM [facility] DERMATOPATHOLOGY LABORATORY Microscopic Description Specimen A. [...] sections were obtained and reviewed. 12:19 PM [facility] DERMATOPATHOLOGY LABORATORY Disclaimer An external and internal positive and negative controls are appropriate for the histochemical, immunohistochemical and immunofluorescence stain(s) in this case (if any), except where stated explicitly. The performance characteristics of the stain(s) cited in this report were developed and its performance characteristic determined by the Dermatopathology Laboratory at [facility], directed by Dr. Efra Putnam. These tests need not be, and therefore are not, approved by the [place] Food and Drug Administration. The tests are used for clinical purposes. Billing Codes Specimen Charges Stain Charges 19578 1 14796 1 1 12:19 PM [facility] DERMATOPATHOLOGY LABORATORY Embedded Images 12:19 PM [facility] DERMATOPATHOLOGY LABORATORY Pathology/Cytolog y TISSUE SPECIMEN FROM SKIN / Unknown 08/01/2020 08/02/2020 10:06 AM SENIOR ACCOUNT DIRECTOR us Lexis Peterson MD LAB - PATHOLOGY/CYTOLOGY ORD ERABLES Final Result DERMATOPATHOLOGY LABORATORY [facility] - Department of Dermatology [address] [phone] documented in this encounter Visit Diagnoses Not on filedocumented in this encounter
--- NOTE | 2024-10-27 11:35 | WPDANESEPPF ---
Anes - Initial Pre Proc Eval Procedure: Operation Date: 10/27/24 12:30 Proposed Procedures p Esophagogastroduodenoscopy - Jeremy Cohn MD Date/Time: 10/27/24 11:35 Surgeon: Jeremy Cohn MD Pre Op Diagnosis: GERD, Dysphagia Patient Data Age: 39 Gender: F Height: 1.7 m Weight: 85 kg Allergies Allergy/AdvReac Type Severity Reaction Status Date / Time No Known Allergies Allergy Verified 10/27/24 11:34 Home Medications ?Medication ?Instructions ?Recorded ?Confirmed ?Type cetirizine 10 mg tablet 10 mg PO DAILY 06/26/22 10/27/24 History escitalopram oxalate 20 mg tablet 20 mg PO DAILY 06/26/22 10/27/24 History omeprazole 40 mg capsule,delayed See Rx Instructions .Route 09/07/24 10/27/24 Rx release .COMPLEX #30 caps tirzepatide (weight loss) 5 mg/0.5 5 mg (0.5 mL) subcut WEEKLY #2 mL 10/03/24 10/27/24 Rx mL subcutaneous pen injector (Zepbound) montelukast 10 mg tablet 10 mg PO DAILY #90 tabs 10/10/24 10/27/24 Rx (Singulair) Patient hx anesthesia problems: none Family hx anesthesia problems: none Results Review: All pre-operative results and documents have been reviewed as part of the pre-operative evaluation. [facility] Past Medical History Medical History GERD (gastroesophageal reflux disease) Anxiety Family History Family History Mother Depression Sibling Depression Sibling Depression Grandparent Depression Cancer Alcoholism Grandparent Depression Cancer Alcoholism Social History Social History Smoking status: Former smoker Tobacco type: cigarettes Second hand tobacco smoke exposure: Yes Alcohol intake: never Substance use: never Substance use type: does not use Do You Feel Safe in your Home?: Yes Lack of Transportation: No Lack of Food: Never True Current Housing: I Have Housing Concerned About Future Housing: No Difficulty Paying Gas/Electric Bills: No Difficulty Paying for Meds: No Currently Unemployed: No Education: Master's Degree or Higher Difficulty w/ Childcare or Family Care: No Living arrangements: with family Gender identity (if verbalized by the patient): Female Spiritual care concerns: No Agree to blood products: Yes Anes - Evadrian Final PreProcedure Day of Procedure 10/27/24 11:35 Patient weight: normal Heart: regular rate and rhythm Lungs: clear to auscultation Airway: Mallampati scale class II Neurological: alert and oriented Last oral intake: >/= 8 hours ASA classification: II Emergent: no Anesthetic plan: proceed Anesthesia type and monitoring: general GIVS and standard monitoring Results Review: All pre-operative results and documents have been reviewed as part of the pre-operative evaluation. Informed Consent: The patient's anesthetic plan and its attendant risks and benefits were discussed with the patient/family/POA. Questions were solicited and answers provided to the satisfaction of the patient/family/POA.
[2024-10-27 11:36] VITALS: BP 111/73; PULSE 65; RESP 19; TEMP 36.6; O2SAT 100
[2024-10-27 11:39] LABS: BEDSIDEPREGUCG Negative (Negative)
--- NOTE | 2024-10-27 11:40 | PM.HPGS ---
History of Present Illness History of Present Illness Consent: Risks, benefits, and alternatives have been discussed and questions answered. Patient agrees to proceed with procedure. Chief complaint: GERD, Dysphagia Narrative: Danielle Briones is a 39 year old female here for first egd, h/o gerd on ppi, also was told that had celiac- recently again eating gluten for last few weeks in preparation for egd but that did not cause her more issues. Review of Systems Review of Systems: All systems reviewed & are unremarkable except as noted in HPI and below PMFSH Past Medical History Medical History GERD (gastroesophageal reflux disease) Anxiety Family History Family History Mother Depression Sibling Depression Sibling Depression Grandparent Depression Cancer Alcoholism Grandparent Depression Cancer Alcoholism Social History Social History Smoking status: Former smoker Tobacco type: cigarettes Second hand tobacco smoke exposure: Yes Alcohol intake: never Substance use: never Substance use type: does not use Do You Feel Safe in your Home?: Yes Lack of Transportation: No Lack of Food: Never True Current Housing: I Have Housing Concerned About Future Housing: No Difficulty Paying Gas/Electric Bills: No Difficulty Paying for Meds: No Currently Unemployed: No Education: Master's Degree or Higher Difficulty w/ Childcare or Family Care: No Living arrangements: with family Gender identity (if verbalized by the patient): Female Spiritual care concerns: No Agree to blood products: Yes Meds Home Medications and Allergies Home Medications ?Medication ?Instructions ?Recorded ?Confirmed ?Type cetirizine 10 mg tablet 10 mg PO DAILY 06/26/22 10/27/24 History escitalopram oxalate 20 mg tablet 20 mg PO DAILY 06/26/22 10/27/24 History omeprazole 40 mg capsule,delayed See Rx Instructions .Route 09/07/24 10/27/24 Rx release .COMPLEX #30 caps tirzepatide (weight loss) 5 mg/0.5 5 mg (0.5 mL) subcut WEEKLY #2 mL 10/03/24 10/27/24 Rx mL subcutaneous pen injector (Zepbound) montelukast 10 mg tablet 10 mg PO DAILY #90 tabs 10/10/24 10/27/24 Rx (Singulair) Allergies Allergy/AdvReac Type Severity Reaction Status Date / Time No Known Allergies Allergy Verified 10/27/24 11:34 Vital Signs Vital Signs - 24 hr 10/27/24 11:36 Temperature 98 F Pulse Rate 65 Respiratory Rate 19 Blood Pressure 111/73 Pulse Oximetry 100 Oxygen Delivery Room Air Exam Const: General: comfortable and no acute distress HENMT: Face/Nose/Sinus: Normal nares present Eyes: General: appearance normal, both eyes and all related structures Neck: Neck: no JVD Resp: Auscultation: clear to auscultation bilaterally Cardio: Rate: regular rate Rhythm: regular rhythm GI: Inspection: non-distended GI Palp: Yes Soft to palpation Skin: General skin exam: normal color Neuro: General: gait normal Speech: normal speech Extrem: General: normal to inspection Psych: Mental Status: mental status grossly normal Assessment and Plan Assessment and plan (1) GERD (gastroesophageal reflux disease): Qualifiers: Esophagitis presence: esophagitis presence not specified Qualified Code(s): K21.9 - Gastro-esophageal reflux disease without esophagitis Code(s): K21.9 - Gastro-esophageal reflux disease without esophagitis Status: Acute Assessment and Plan: egd with bx (also will assess for celiac) on ppi
[2024-10-27] MEDS: LACTATED RINGERS 1,000 ML 150 ML IV CONT (11:44)
[2024-10-27 11:56] VITALS: BP 94/53; PULSE 60; RESP 17; O2SAT 97
[2024-10-27 12:06] VITALS: BP 95/58; PULSE 63; RESP 17; O2SAT 97
[2024-10-27 12:16] VITALS: BP 99/58; PULSE 54; RESP 17; O2SAT 100
== END 2024-10-27 12:28 | disposition home or self-care (01) ==
PROVIDERS: Anesthesiology; PCP Family Medicine; Referring Provider Nurse Practitioner Family; Visit Provider Internal Medicine Gastroenterology
PROC: 0DJ08ZZ Inspection of Upper Intestinal Tract, Via Natural or Artificial Opening Endoscopic (ICD-10-PCS; CPT 43239; principal; 2024-10-27 12:30)
DX: K21.9 Gastro-esophageal reflux disease without esophagitis (principal); K90.0 Celiac disease; K86.81 Exocrine pancreatic insufficiency; F41.9 Anxiety disorder, unspecified; Z79.85 Long-term (current) use of injectable non-insulin antidiabetic drugs; Z87.891 Personal history of nicotine dependence; Z80.9 Family history of malignant neoplasm, unspecified
CPT/HCPCS: 43239; 88305; J2003; J2704; J7120

== ENCOUNTER 2025-04-11 08:58 | Outpatient (CLI) | payer OTHER, SELFPAY ==
--- NOTE | ~2025-04-11 | CT_ITS ---
EXAMINATION: CT diagnostic chest wo con DATE: 04/11/2025 09:28 INDICATION: Chronic cough TECHNIQUE: Computed tomography (CT) of the chest was performed without intravenous contrast. The dose-length product was 146.09 mGy-cm. Automated exposure control and iterative reconstruction technique were employed. COMPARISON: None FINDINGS: Heart size normal. No significant pleural or pericardial effusion. No thoracic lymphadenopathy. No significant soft tissue abnormality. Upper abdomen is unremarkable. No focal airspace consolidation. No endobronchial lesions. No pneumothorax. No suspicious pulmonary nodules. No focal consolidation to suggest pneumonia. No acute osseous abnormality. IMPRESSION: 1. No acute cardiopulmonary disease. Reviewed, dictated and finalized at location O.
--- OUTSIDE RECORDS SUMMARY | 2025-04-11 09:45 | XMS_ITS | Encounter Summary ---
Author Organization [facility] Address [address] [facility] [place] [address] Phone Care Team Providers Care Manager Social Work Name Role Phone Martinez Ovalle MD Primary Care Provider [phone] [phone] Reason for Visit * Reason Comments Medication Refill Encounter Details Date Type Department Care Team (Late st Contact Info) Description 09/15/2023 Refill [facility] #[address] [place] [address] Mars Yung MD [address] [address] Medication Refill Social History Tobacco Use Types [...] on filedocumented in this encounter Care Teams Manager Social Work Relationship Specialty Start Date End Date Martinez Ovalle MD [address] [place] [address] PCP - General Internal Medicine 07/11/15 documented as of this encounter
--- OUTSIDE RECORDS SUMMARY | 2025-04-11 09:45 | XMS_ITS | Clinical Summary ---
Author Organization [facility] Address [address] [place] [address] Care Team Providers Care Distillery Supervisor Name Role Phone Martinez Ovalle MD Primary Care Provider [phone] Allergies No known active allergies Medications escitalopram [...] P M CDT Height 170.2 cm (5' 7) 10/23/2022 9:42 PM CDT Body Mass Index 30.42 10/23/2022 9:42 PM CDT Plan of Treatment Health Maintenance Due Date Last Done Comments Cervical Cancer Screening Pap Smear (Age 30 to 64) Every 3 Years 1983 Annual Physical 1986 Hepatitis C 2001 Hepatitis B Vaccines (1 of 3 - 19+ 3-dose series) 2002 HPV Vaccines (1 - 3-dose SCDM series) 2010 Cervical Cancer Screening Pap with HPV Testing (Age 30 to 64) Every 5 Years 2013 Cervical Cancer Screening with HPV 2013 Mammogram Screening 2023 COVID-19 Vaccine (2024- season) 2025 09/16/2020, 08/19/2020 Influenza Adult (#1) 2025 02/19/2022, 04/26/2020, 03/21/2019, Additional history exists DTaP, Tdap and Td Vaccines (3 - Td or Tdap) 11/23/2027 11/22/2017, 03/17/2012 Hepatitis A Vaccines Aged Out No long er eligible based [...] 49 Years) Aged Out No longer eligible based on patient's age to complete this topic RSV Immunizations Under 20 Months Aged Out No longer eligible based on patient's age to complete this topic Insurance [facility] Care Teams Distillery Supervisor Relationship Specialty Start Date End Date Martinez Ovalle MD [address] [place] [address] PCP - General INTERNAL MEDICINE 12/07/17
--- OUTSIDE RECORDS SUMMARY | 2025-04-11 09:45 | XMS_ITS | Clinical Summary ---
Author Organization [facility] Address [address] [facility] [place] [address] Care Team Providers Care Cross Enterprise Integrator Name Role Phone Unavailable Primary Care Provider Unavailabl e Source Comments [facility],non-owned Affiliates and Associated Physician Practices is amultiple site organization consisting of ambulatory clinics and hospital sitesin [place], [place] and [place]. This disclosure is being madepursuant to the Care Everywhere program and may not contain all information available regarding this patient. Last updated 18.[facility] [employer] Social History Tobacco Use Types Packs/Day Years [...] of 3 - 19+ 3-dose series) 2002 PAP SMEAR 01/19/2004 HPV VACCINE (1 - 3-dose SCDM series) 2010 DEPRESSION SCREENING 06/21/2024 COVID-19 VACCINE ( - 2023-2 5 season) 2025 INFLUENZA VACCINE (#1) 2025 ZOSTER VACCINE (1 of 2) 2033 [...] patient's age to complete this topic [place] [address] [address] [place] [address] [facility]
--- OUTSIDE RECORDS SUMMARY | 2025-04-11 09:45 | XMS_ITS | Encounter Summary ---
Author Organization [facility] Address [address] [facility] [place] [address] Care Team Providers Care Toll Gate Keeper Name Role Phone Unavailable Primary Care Provider Unavailabl e Encounter Details Date Type Department Care Team (Late st Contact Info) Description 08/02/2020 Lab Requisition [facility] [address] [facility] [place] [address] Lexis Peterson MD [address] [facility] [address] [place] [address] Social History Tobacco Use Types Packs/Day Years [...] Comments DERMATOPATHOLOGY Routine 08/01/2020 12:0 0 AM STERILISATION TECHNICIAN documented in this encounter Results * DERMATOPATHOLOGY (08/01/2020 12:00 AM STERILISATION TECHNICIAN) Case Report Dermatopathology Report Case: [id number] Authorizing Provider: Lexis Peterson MD Collected: 08/01/2020 12:00 AM Ordering Location: [facility] Care DermPath Lab Received: 08/02/2020 10:06 AM Pathologist: Frank Putnam MD Specimen: Skin, right knee 12:19 PM STERILISATION TECHNICIAN DERMATOPATHOLOGY LABORATORY Final Diagnosis Specimen A. SKIN, right knee: SPONGIOTIC DERMATITIS WITH EOSINOPHILS (L30.8) (see microscopic description and comment) 1 12:19 PM [facility] DERMATOPATHOLOGY LABORATORY at [address] [facility] Clinical History R/O PSO, AD, LSC 12:19 PM [facility] DERMATOPATHOLOGY LABORATORY Gross Description Specimen A: Received is one formalin filled container labeled with the patient's name and designated right knee. The specimen consists of a punch biopsy measuring 3x3x5 mm. Jar 0. 12:19 PM [facility] DERMATOPATHOLOGY LABORATORY Microscopic Description Specimen A. [...] sections were obtained and reviewed. 12:19 PM [facility] DERMATOPATHOLOGY LABORATORY Disclaimer An external and internal positive and negative controls are appropriate for the histochemical, immunohistochemical and immunofluorescence stain(s) in this case (if any), except where stated explicitly. The performance characteristics of the stain(s) cited in this report were developed and its performance characteristic determined by the Dermatopathology Laboratory at [facility], directed by Dr. Efra Putnam. These tests need not be, and therefore are not, approved by the [place] Food and Drug Administration. The tests are used for clinical purposes. Billing Codes Specimen Charges Stain Charges 37203 1 69776 1 1 12:19 PM [facility] DERMATOPATHOLOGY LABORATORY Embedded Images 1 12:19 PM [facility] DERMATOPATHOLOGY LABORATORY Pathology/Cytolog y TISSUE SPECIMEN FROM SKIN / Unknown 08/01/2020 08/02/2020 10:06 AM [facility] us Lexis Peterson MD LAB - PATHOLOGY/CYTOLOGY ORD ERABLES Final Result DERMATOPATHOLOGY LABORATORY [facility] - Department of Dermatology [address], [address] Floor [address] [phone] documented in this encounter Visit Diagnoses Not on filedocumented in this encounter
--- OUTSIDE RECORDS SUMMARY | 2025-04-11 09:46 | XMS_ITS | Clinical Summary ---
Author Organization [facility] Address [address] [place] [address] Phone Care Team Providers Care Ophthalmology Surgical Technician Name Role Phone Martinez Ovalle MD Primary Care Provider [phone] Allergies No known active allergies Medications ondansetron [...] 3:52 PM CDT Height 172.7 cm (5' 8) 01/01/2022 3:52 PM CDT Body Mass Index 28.13 01/01/2022 3:52 PM CDT Plan of Treatment Health Maintenance Due Date Last Done Comments Hepatitis C Virus (HCV) Screening 1983 Mammogram 1983 Hepatitis B Immunization (1 of 3 - 19+ 3-dose series) 2002 Pap Smear 01/19/2004 Human Papillomavirus (HPV) Immunization (1 - 3-dose SCDM series) 2010 Cervical Cancer Screening (CCS) 2013 HPV/Cotest 2013 Discussion re Starting/Frequency of Mammograms 2023 Influenza Immunization (#1) 2025 11/0 11/2019, 03/21/2019, 03/13/2017, Additional history exists SARS-COV-2 Immunization ( season) 2025 09/16/2020, 08/19/2020 Respiratory Syncytial Virus (RSV) Immunization [...] patient's age to complete this topic [place] [address] [address] TRAIL Member Subscriber Plan / Payer (Ef fective for All Dates) Name:Danielle Ray Member ID:[id number] Relation to Subscriber:Self Name:Danielle Ray Subscriber ID:[id number] Payer ID:[id number] Group ID:NONE Type:Not on file Address: [facility] [address] [place] [address] Advance Directives * Full Code (Latest Code Status on File) Date Activated Date Inactivated Comments 10/27/2017 9:54 PM 10/28/2017 3:35 AM CPR-Full Anum tment: FULL ARREST: Attempt Resuscitation/CPR wit intubation and mechanical ventilation. PRE-ARREST: Use entire range of life support measures to stabilize the patient. Care Teams Ophthalmology Surgical Technician Relationship Specialty Start Date End Date Martinez Ovalle MD [address] [place] [address] PCP - General Internal Medicine 07/11/15
== END 2025-04-11 08:59 | disposition home or self-care (01) ==
PROVIDERS: PCP Family Medicine; Visit Provider Physician Assistant
DX: R05.3 Chronic cough (principal); Z57.39 Occupational exposure to other air contaminants; Z87.891 Personal history of nicotine dependence
CPT/HCPCS: 71250

== ENCOUNTER 2025-04-19 09:17 | Outpatient (CLI) | payer OTHER, SELFPAY ==
--- NOTE | ~2025-04-19 | XR_ITS ---
XR lumbar spine 2-3V Indication: M54.50 - Low back pain, unspecified Comparison: None Findings: The vertebral heights are intact. No fracture or subluxation. The disc heights are intact. Soft tissues unremarkable Impression: No acute abnormality. Reviewed, dictated and finalized at location P. Impression: No acute abnormality.
--- OUTSIDE RECORDS SUMMARY | 2025-04-19 09:54 | XMS_ITS | Encounter Summary ---
Author Organization [facility] Address [address] [facility] [place] [address] Phone Care Team Providers Care Oxygen Therapy Teacher Name Role Phone Martinez Ovalle MD Primary Care Provider [phone] Reason for Visit * Reason Comments Medication Refill Encounter Details Date Type Department Care Team (Late st Contact Info) Description 09/15/2023 Refill [facility] [address] [place] [address] Mars Yung MD [address] [address] Medication Refill Social History Tobacco Use Types [...] on filedocumented in this encounter Care Teams Oxygen Therapy Teacher Relationship Specialty Start Date End Date Martinez Ovalle MD [address] [place] [address] PCP - General Internal Medicine 07/11/15 documented as of this encounter
--- OUTSIDE RECORDS SUMMARY | 2025-04-19 09:54 | XMS_ITS | Clinical Summary ---
Author Organization [facility] Address [address] [place] [address] Care Team Providers Care Peat Shredder Tender Name Role Phone Guillermo Swanson MD Primary Care Provider [phone] Allergies No known active allergies Medications ALPRAZolam (XANAX) 0.5 mg tablet Take 1 tablet (0.5 mg total) by mouth 3 (three) times a day as needed for anxiety 20 tablet 2 03/06/20 22 Active Additional Information Patient not taking.Reported on 01/25/2025 vibegron (Gemtesa) 75 mg tablet Take 75 mg by mouth daily Active phentermine 15 mg capsule TAKE 1 CAPSULE(15 MG) BY MOUTH EVERY MORNING 30 capsule 10/15/19 24 Active Additional Information Patient not taking.Reported on 01/25/2025 buPROPion XL (WELLBUTRIN XL) 150 mg 24 hr tablet Take 1 tablet (150 mg total) by mouth daily Active pantoprazole DR (PROTONIX) 40 mg EC tablet Take 1 tablet (40 mg total) by mouth daily 90 tablet 1 01/05/20 24 Active Additional Information Patient not taking.Reported on 01/25/2025 Zepbound 7.5 mg/0.5 mL pen injector ADMINISTER 7.5 MG UNDER THE SKIN WEEKLY 12/28/19 25 Active escitalopram (LEXAPRO) 20 mg tablet Take 1 tablet (20 mg total) by mouth daily 90 tablet 3 03/06/20 25 Active cetirizine (ZyrTEC) 10 mg tablet TAKE 1 TABLET BY MOUTH EVERY DAY 30 tablet 10 04/11/20 25 Active cetirizine (ZyrTEC) 10 mg tablet TAKE 1 TABLET BY MOUTH EVERY DAY 30 tablet 10 04/05/20 24 025 Discontinued Active Problems Problem Noted Date Diagnosed Date [...] (02/03/2022): Added automatically from request for surgery [id number] Skin cyst 03/25/2021 Assessment & Plan (03/25/2021 4:16 PM CDT): No active drainage. To discuss with derm as she has an appt scheduled with them. We discussed trying a deodorant only. Dizziness 05/08/2019 Assessment & Plan (05/08/2019 4:01 PM TYPESETTER APPRENTICE): Instructed to increase daily water intake. She has been using a ketogenic diet, has been advised to eat a more structured meal plan that includes daily dietary fiber hydration and a healthy balance of protein and fats. Acute pain of left knee 05/08/2019 Assessment & Plan (05/08/2019 4:02 PM TYPESETTER APPRENTICE): She does not wish to have imaging at this time. Will order physical therapy. Advised to use [id number] NSAIDs use as directed on the package. [...] delivery 06/09/2018 39 weeks gestation of 06/09/2018 Encounters Date Type Department Care Team Description 01/31/2025 8:11 AM CDT - 01/31/2025 11:59 PM CDT Hospital Encounter [facility] [address] [place] [address] Encounter for screening mammogram for breast cancer Discharge Disposition: Discharge to home or self care 01/31/2025 Results Follow-Up [place] [facility] [address] [place] [address] Mary Olson NP Pap, reflex HPV, Screening Mammogram Bilateral W [place] 01/25/2025 10:15 AM CDT [facility] [address] [place] [address] Mary Olson NP Well woman exam (Primary Dx); Encounter for screening mammogram for breast cancer from Last 3 Months Immunizations Immunization Administration Dates Next Due Anthrax [...] 06/21/2011 - 06/20/2012 BREAST BIOPSY 03/30/2023 Right benign us bx Medical History Medical History Date Comments Hx Other Medical 2008 uncomplicated t erm Hx Other Medical 2008 ; Outc ome: 40 week 6 lb(s) [...] leandro ekemia. No colon, breast or sales communications manager cancer. 03/25/21 Paternal Grandfather Paternal Grandmother Social [...] points, staff should administer the PHQ-9) 0 01/25/2025 Personal Safety Answer Date Recorded Have you ever been in or are you currently in a harmful physical or emotional relationship or is someone making you feel afraid or unsafe? Denies 12/30/2023 Comments No Sex and Gender Information Value Date Recorded Sex Assigned at Not on file Legal Sex Female 1:32 PM TYPESETTER APPRENTICE Gender Identity Not on file Sexual Orientation Not on file Obstetrics History Para Term AB IAB SAB Ectopic Multiple Livin g Live Births 5 3 3 2 2 0 3 3 Date Outcome GA Total Labor Labor/2nd/3rd Weight Sex Type Anes PTL [place] A1 A5 Name Clin 2004 SAB 6w0 d 2008 Term 41w 0d 3.062 kg (6 lb 12 oz) M Vag-S pont Epidur al N Livin g [place] Complications:None 2010 SAB 10w 0d D&C 2011 Term 41w 0d 3.232 kg (7 lb 2 oz) M Vag-S pont Epidur al N Livin g [place] Complications:None 2017 Term 39w 1d 7h 10m 7h 00m/0h 03m/0h 07m 3.918 kg (8 lb 10.2 oz) M Vag-S pont Epidur al N Livin g 7 9 Prasanth Nair MD Complications:None Delivery Location:[facility]) Last Filed Vital Signs Vital Sign Reading Time Taken Comments Blood Pressure 114/74 01/25/2025 10:17 AM CDT Pulse 62 01/05/2024 9:22 AM CDT Temperature 36.6 C (97.9 F) 01/05/2024 9:22 AM CDT Respiratory Rate 16 01/05/2024 9:22 AM CDT Oxygen Saturation 98% 01/05/2024 9:22 AM CDT room air Inhaled Oxygen Concentration - - Weight 78.5 kg (173 lb) 01/31/2025 8:16 AM CDT Height 170.2 cm (5' 7) 01/31/2025 8:16 AM CDT Body Mass Index 27.1 01/31/2025 8:16 AM CDT Plan of Treatment Health Maintenance Due Date Last Done Comments HPV Vaccines (1 - 3-dose SCDM series) 2010 Varicella Vaccines (1 of 2 - 13+ 2-dose series) 04/18/2023 Influenza Vaccine (#1) 2025 , 04/24/2022, 02/19/2022, Additional history exists Cervical Cancer Screening 01/25/20262024, 04/23/2023, 04/01/2022, Additional history exists Depression Screening 01/25/2026 01/25/2025, 01/05/2024, 08/11/2023, Additional history exists Regular Well Visit/Exam 18-64 01/25/2026 01/25/2025, 08/11/2023, 04/23/2023, Additional history exists Breast Cancer Screening-Mammogram 01/31/2026 01/31/2025, 03/16/2023, 02/12/2023 DTaP/Tdap/Td Vaccine (6 - Td or Tdap) 01/25/2032 01/24/2022, 11/22/2017, 03/17/2012, Additional history exists Hepatitis B Screening Completed 07/29/2004 , 12/08/2003, 11/07/2003 Hepatitis C Screening Completed 06/25/2017 Pneumococcal vaccine <65 Aged Out No longer eligible based on patient's age to complete this topic Medical Devices Implanted Type Area Tire Classifier Device Identifier Shelf Expiration Date Model / Serial / Lot Bard Peripheral Vascular Marker Breast Dual Trigger Pva Ultraclip [id number] - [id number] - [id number] Implanted:Qty: 1 on 03/30/2023 by Charu De Santiago MD at [facility] Breast Right: Breast [employer] Peripheral Vascular 05/18/2025 [id number] / [id number] Description:Implanted Right Breast 7:00 area 7-8 cmfn Procedures Procedure Name Priority Date/Time Associated Diagnosis Comments SCREENING MAMMOGRAM BILATERAL W KENDE[place] Schedule Routine, Read Routine (OP Routine) 01/31/2025 8:24 AM CDT Encounter for screening mammogram for breast cancer PAP, REFLEX HPV Routine 01/25/2025 10:58 AM CDT Well woman exam HEPATITIS C ANTIBODY Routine 06/25/2017 5:28 PM TYPESETTER APPRENTICE Encounter for supervision of other normal in first trimester from Last 3 Months or Most Recently Relevant to Health Maintenance Results * Screening Mammogram Bilateral W [place] (01/31/2025 8:24 AM CDT) Anatomical Region Laterality Modality Breast Bilateral Mammography Impressions 01/31/2025 8:48 AM CDT Bilateral No evidence of malignancy in either breast. OVERALL BI-RADS FINAL ASSESSMENT: 1 - Negative RECOMMENDATION: Recommend bilateral annual screening mammography. Narrative 01/31/2025 8:48 AM CDT EXAMINATION: Screening Mammogram Bilateral W [place]: 01/31/2025 COMPARISON: Relevant prior studies available at the time of interpretation were reviewed, including the most recent mammogram on: 03/16/2023. TECHNIQUE: Mammography was performed with 2D and 3D digital breast tomosynthesis (DBT) images. CAD was utilized. BREAST PARENCHYMAL COMPOSITION: There are scattered areas of fibroglandular density. FINDINGS: Bilateral There is no suspicious mass, calcification, or architectural distortion in either breast.There is a biopsy marker clip in the right breast. Mary Olson NP IMG MAMMO PROCEDURES Final Result * Pap, reflex HPV (01/25/2025 10:58 AM CDT) CLINICAL INFORMATION: [employer] Comment: None given WELL WOMEN LMP [employer] Comment:01/17/25 Previous Pap [facility] Comment:NONE GIVEN Prev. Bx [employer] Comment:NONE GIVEN SOURCE: [facility] Comment:Cervix, Endocervix Pap, specimen adequacy [employer] Comment: Satisfactory for evaluation. Endocervical/transformation zone component present. HPV interp [facility] Comment: Cytology Results: Negative for intraepithelial lesion or malignancy. COMMENTS [employer] Comment: This Pap test has been evaluated with the ThinPrep(R) Imaging System. [employer] [facility] Comment: AVN, CT(ASCP CT Screening Location: [facility], [address] [place] [address] CLIA: [id number] Slide preparation performed at: [facility], [address] [place] [id number] CLIA: [id number] Comment [facility] Comment: EXPLANATORY NOTE: The Pap is a screening test for cervical cancer. It is not a diagnostic test and is subject to false negative and false positive results. It is most reliable when a satisfactory sample, regularly obtained, is submitted with relevant clinical findings and history, and when the Pap result is evaluated along with historic and current clinical information. Thin prep 01/25/2025 10:5 8 AM CDT 01/26/2025 6:40 PM CDT us Mary Olson NP LAB CYTOLOGY ORDERABLES Fin al Result Performing Organization Address City/[facility]/ZIP Co de Phone Number [employer] [address] * Hepatitis C antibody (06/25/2017 5:28 PM TYPESETTER APPRENTICE) Hep C Ab Negative Negative FELICE NURA ([place]) Comment:Testing performed by : [facility], [address] [place] [address], [facility] Blood specimen (specimen) 06/25/2017 5:28 PM TYPESETTER APPRENTICE 06/26/2017 7:11 PM TYPESETTER APPRENTICE Narrative FELICE LYMAN ([place]) - 06/26/2017 9:17 PM TYPESETTER APPRENTICE us Dhiraj Meng MD LAB MICROBIOLOGY - GENERAL ORDERABLES Final Result Performing Organization Address [facility] Co de Phone Number FELICE LYMAN ([place]) [address] [facility] Department [place] [address] from Last 3 Months or Most Recently Relevant to Health Maintenance Insurance [facility] CLAIMS Member Subscriber Plan / Payer (Ef fective 2024-Present) Name:DANIELLE RAY Relation to Subscriber:Self Name:Danielle Ray Payer ID:[id number] (NAIC) Group ID:Not on file Type:[employer] Address: [facility] [id number] [facility] CLAIMS Advance Directives For more information, please contact: [phone] * Full Code (Latest Code Status on File) Date Activated Date Inactivated Comments 02/12/2022 7:52 AM 02/12/2022 2:00 PM * Full Code Date Activated Date Inactivated Comments 02/12/2022 7:52 AM 02/12/2022 7:52 AM * Full Code Date Activated Date Inactivated Comments 2018 8:57 PM 01/21/2018 4:54 PM Full CPR in c ase of cardiopulmonary arrest Care Teams Peat Shredder Tender Relationship Specialty Start Date End Date Guillermo Swanson MD [address] [place], [place] [id number] PCP - General Family Practice 01/25/25
--- OUTSIDE RECORDS SUMMARY | 2025-04-19 09:54 | XMS_ITS | Clinical Summary ---
Author Organization [facility] Address [address] [place] [address] Care Team Providers Care Vaccine Customer Representative Name Role Phone Martinez Ovalle MD Primary Care Provider [phone] Allergies No known active allergies Medications escitalopram [...] patient's age to complete this topic Insurance [facility] Care Teams Vaccine Customer Representative Relationship Specialty Start Date End Date Martinez Ovalle MD [address] [place] [address] PCP - General INTERNAL MEDICINE 12/07/17
--- OUTSIDE RECORDS SUMMARY | 2025-04-19 09:54 | XMS_ITS | Clinical Summary ---
Author Organization [facility] Address [address] [place] [address] Phone Care Team Providers Care Beach Attendant Name Role Phone Martinez Ovalle MD Primary Care Provider [phone] Allergies No known active allergies Medications ondansetron [...] patient's age to complete this topic Insurance [address] [address] [place] Member Subscriber Plan / Payer (Ef fective for All Dates) Name:Danielle Ray Member ID:[id number] Relation to Subscriber:Self Name:Danielle Ray Subscriber ID:[id number] Payer ID:[id number] Group ID:NONE Type:Not on file Address: [facility] [address] [place] [address] Advance Directives * Full Code (Latest Code Status on File) Date Activated Date Inactivated Comments 10/27/2017 9:54 PM 10/28/2017 3:35 AM CPR-Full Anum tment: FULL ARREST: Attempt Resuscitation/CPR wit intubation and mechanical ventilation. PRE-ARREST: Use entire range of life support measures to stabilize the patient. Care Teams Beach Attendant Relationship Specialty Start Date End Date Martinez Ovalle MD [address] [place] [address] PCP - General Internal Medicine 07/11/15
--- OUTSIDE RECORDS SUMMARY | 2025-04-19 09:54 | XMS_ITS | Clinical Summary ---
Author Organization [facility] Rachio Address [address] [place] [address] Care Team Providers Care Marine Propulsion Technician Name Role Phone Unavailable Primary Care Provider Unavailabl e Source Comments [facility],non-owned Affiliates and Associated Physician Practices is amultiple site organization consisting of ambulatory clinics and hospital sitesin [place], [place], [place] and [place]. This disclosure is being madepursuant to the Care Everywhere program and may not contain all information available regarding this patient. Last updated 18.[facility] Rachio Social History Tobacco Use Types Packs/Day Years [...] patient's age to complete this topic Insurance [address] [address] [facility]
--- OUTSIDE RECORDS SUMMARY | 2025-04-19 09:54 | XMS_ITS | Encounter Summary ---
Author Organization [facility] Address [address] [place] [address] Care Team Providers Care Technical Sales Support Manager Name Role Phone Unavailable Primary Care Provider Unavailabl e Encounter Details Date Type Department Care Team (Late st Contact Info) Description 08/02/2020 Lab Requisition [facility] DermPath Lab [address] [facility] [place] [id number] Lexis Peterson MD [address] [facility] [address] [place] [address] Social History Tobacco Use Types Packs/Day Years [...] Comments DERMATOPATHOLOGY Routine 08/01/2020 12:0 0 AM [employer] documented in this encounter Results * DERMATOPATHOLOGY (08/01/2020 12:00 AM [employer]) Case Report Dermatopathology Report Case: [id number] Authorizing Provider: Lexis Peterson MD Collected: 08/01/2020 12:00 AM Ordering Location: [facility] Care DermPath Lab Received: 08/02/2020 10:06 AM Pathologist: Frank Putnam MD Specimen: Skin, right knee 12:19 PM [facility]ORY Final Diagnosis Specimen A. SKIN, right knee: SPONGIOTIC DERMATITIS WITH EOSINOPHILS (L30.8) (see microscopic description and comment) 1 12:19 PM [facility] at [address] [facility] Clinical History R/O PSO, AD, LSC 12:19 PM [facility] Gross Description Specimen A: Received is one formalin filled container labeled with the patient's name and designated right knee. The specimen consists of a punch biopsy measuring 3x3x5 mm. Jar 0. 12:19 PM [facility] Microscopic Description Specimen A. SKIN, [...] sections were obtained and reviewed. 12:19 PM [facility] Disclaimer An external and internal positive and negative controls are appropriate for the histochemical, immunohistochemical and immunofluorescence stain(s) in this case (if any), except where stated explicitly. The performance characteristics of the stain(s) cited in this report were developed and its performance characteristic determined by the Dermatopathology Laboratory at [facility], directed by Dr. Efra Putnam. These tests need not be, and therefore are not, approved by the [place] Food and Drug Administration. The tests are used for clinical purposes. Billing Codes Specimen Charges Stain Charges 44322 1 28384 1 1 12:19 PM [facility] Embedded Images 1 12:19 PM [facility] Pathology/Cytolog y TISSUE SPECIMEN FROM SKIN / Unknown 08/01/2020 08/02/2020 10:06 AM [facility] Lexis Peterson MD LAB - PATHOLOGY/CYTOLOGY ORD ERABLES Final Result DERMATOPATHOLOGY LABORATORY [facility] - Department of Dermatology [address] [phone] documented in this encounter Visit Diagnoses Not on filedocumented in this encounter
== END 2025-04-19 09:18 | disposition home or self-care (01) ==
PROVIDERS: PCP Family Medicine; Visit Provider Family Medicine
DX: M54.50 Low back pain, unspecified (principal); M41.9 Scoliosis, unspecified
CPT/HCPCS: 72100